=== PATIENT | female | born 1995 | race Caucasian/White ===

== ENCOUNTER → 2021-03-05 12:58 | Outpatient (CLI) | payer OTHER, SELFPAY ==
--- NOTE | ~2021-03-05 | US_ITS ---
EXAMINATION: US OB transvaginal DATE: 03/05/2021 13:36 INDICATION: First trimester viability assessment TECHNIQUE: Real-time pelvic transabdominal and transvaginal ultrasound was performed. COMPARISON: None. FINDINGS: The uterus measures 7.3 x 5.4 x 6.7 cm. There is an intrauterine gestational sac. A yolk s ac is identified. There appears to be a tiny pole, too small to measure. heart rate is no t determined due to small pole size. The mean sac diameter is 1.6 cm , which correlates with an estimated gestational age of 6 weeks and 0 day(s) (+/-) 7 day(s). The right ovary measures 3.6 x 3.2 x 4.6 cm. The left ovary measures 2.9 x 1.9 x 2.6 cm. There is nor mal vascular flow in the ovaries. There is no free fluid in the pelvis. IMPRESSION: 1. Intrauterine with an estimated gestational age of 6 weeks and 0 day(s) (+/-) 7 day(s) an d an estimated delivery date of 10/29/2021 based on mean sac diameter. Reviewed, dictated and finalized at location A. IMPRESSION: 1. Intrauterine with an estimated gestational age of 6 weeks and 0 da y(s) (+/-) 7 day(s) and an estimated delivery date of 10/29/2021 based on mean s ac diameter.
== END ==
PROVIDERS: Visit Provider Nurse Practitioner
DX: Z34.91 Encounter for supervision of normal pregnancy, unspecified, first trimester (principal); Z3A.01 Less than 8 weeks gestation of pregnancy
CPT/HCPCS: 76817

== ENCOUNTER → 2021-03-21 11:18 | Outpatient (CLI) | payer OTHER, SELFPAY ==
--- NOTE | ~2021-03-21 | US_ITS ---
EXAMINATION: US OB transvaginal EXAM DATE: 03/21/2021 11:48 INDICATION: Confirm viability. 1st trimester. TECHNIQUE: Pelvic obstetrical transvaginal sonogram was performed by a technologist. There are mult iple grayscale and Doppler images available for interpretation. Comparison is made to prior examinati on from 03/05/21. FINDINGS: Uterus measures 7.9 x 6.7 x 7.4 cm. There is intrauterine gestation sac. pole with heart rate confirmed at 167 beats per minute. The 1.4 cm crown-rump length corresponds to estimated gestational age by ultrasound of 7 weeks 5 days, estimated date of confinement 11/02/2021. Yolk sac i s identified. There is no sonographic evidence of subchorionic hemorrhage. Ovaries not visualized . IMPRESSION: Early live intrauterine gestation, age by ultrasound 7 weeks 5 days. Reviewed, dictated and finalized at location B. IMPRESSION: Early live intrauterine gestation, age by ultrasound 7 weeks 5 day s.
== END ==
PROVIDERS: Visit Provider Obstetrics & Gynecology Gynecology
DX: O36.80X0 Pregnancy with inconclusive fetal viability, not applicable or unspecified (principal); Z3A.01 Less than 8 weeks gestation of pregnancy
CPT/HCPCS: 76817

== ENCOUNTER → 2021-06-04 10:44 | Outpatient (CLI) | payer OTHER, SELFPAY ==
--- NOTE | ~2021-06-04 | US_ITS ---
US OB /maternal detail DATE: 06/04/2021 11:24 INDICATION: anatomy screen TECHNIQUE: Real-time imaging and Doppler analysis COMPARISON: None FINDINGS: Live arboleda intrauterine gestation, fetus in breech presentation. Posterior placenta, lo wer margin 2.8 cm above the internal os. Subjectively normal amount of amniotic fluid. Cerebral ventricles, cerebellum, cisterna magna and nuchal fold appear normal. cervical spine a ppears normal. Upper lip and nose appear normal. Four-chamber heart with heart rate of 136 bpm. The outflow tracts are not well demonstrat ed. diaphragm is intact. Fluid intensity stomach and urinary bladder. kidneys are ident ified, without hydronephrosis. Three-vessel umbilical cord with normal insertion at abdominal wall. extremities appear u nremarkable. Biparietal diameter 4.28 cm; 19 weeks Head circumference 16.08 cm; 18 weeks 6 days Abdominal circumference 14.22 cm; 19 weeks 4 days Femur length 2.93 cm; 19 weeks Composite age by Hadlock formula is 19 weeks 1 day +/- 1 week 2 days; YANNI: 10/28/2021 weight is 282.7 +/- 42.4 g. Estimated weight-GP: 89.9% Head circumference/abdominal circumference 1.13, within normal range of 1.09 up to 1.26 Femur length/head circumference 18.21, within normal range of 16.20-18.51 IMPRESSION: Breech presentation Unremarkable anatomy screen Estimated age of 19 weeks 1 day +/- 1 week 2 days; YANNI: 10/28/2021 Reviewed, dictated and finalized at Location A. Reviewed, dictated and finalized at location A.
== END ==
PROVIDERS: Visit Provider Obstetrics & Gynecology Gynecology
DX: O32.1XX0 Maternal care for breech presentation, not applicable or unspecified (principal); Z3A.19 19 weeks gestation of pregnancy
CPT/HCPCS: 76805

== ENCOUNTER → 2021-06-25 14:50 | Outpatient (CLI) | payer OTHER, SELFPAY ==
--- NOTE | ~2021-06-25 | US_ITS ---
EXAMINATION: US OB follow up DATE: 06/25/2021 15:26 INDICATION: Evaluate viability. TECHNIQUE: Real-time transabdominal obstetric ultrasound. FINDINGS: Comparison to multiple prior studies sequentially, with oldest reviewed study dated 021. There is a single living fetus in vertex presentation. The placenta is posterior without placenta pr evia. cardiac activity and movement is noted with a heart rate of 142 beats per minute. T he amniotic fluid volume subjectively normal. Limited survey demonstrates normal ventricular outflow tracts. The following biometric data were obtained: BPD: 52mm corresponds to gestational age 21 weeks 5 days. Head circumference: 199mm corresponds to gestational age 22 weeks 0 days. Abdominal circumference: 169mm corresponds to gestational age 21 weeks 6 days. Femur length: 40mm corresponds to gestational age 22 weeks 6 days. Estimated weight: 489grams +/- 73grams, 85th percentile.] IMPRESSION: 1. Single living intrauterine in vertex presentation with an estimated gestational age of 22 weeks 0 days by inititial ultrasound. Appropriate interval growth. 2. Normal limited survey of the ventricular outflow tracts.. Reviewed, dictated and finalized at location A. IMPRESSION: 1. Single living intrauterine in vertex presentation with an estimat ed gestational age of 22 weeks 0 days by inititial ultrasound. Appropriate int erval growth. 2. Normal limited survey of the ventricular outflow tracts..
== END ==
PROVIDERS: Visit Provider Obstetrics & Gynecology Gynecology
DX: O26.842 Uterine size-date discrepancy, second trimester (principal); Z3A.22 22 weeks gestation of pregnancy
CPT/HCPCS: 76816

== ENCOUNTER 2021-10-27 04:54 | Inpatient (IN) | payer OTHER, SELFPAY ==
[2021-10-27] VITALS (92 sets, daily range): BP systolic 88–152; BP diastolic 44–116; PULSE 61–158; RESP 13–20; TEMP 36.1–36.8; O2SAT 93–100; BMI 28.0
[2021-10-27] MEDS: LACTATED RINGERS 1,000 ML 125 ML IV CONT ×2 (05:25→09:45)
[2021-10-27] MEDS: AMPICILLIN 2 GM/NS 100 ML 2 GM/100 ML BAG IVPB (05:30)
[2021-10-27 05:43] LABS: Basophils Percent Auto 0.3 % (0.2-1.2); Eosinophils Absolute Auto 0.1 K/mm3 (0-0.3); Eosinophils Percent Auto 0.7 % (0-4.4); Hematocrit 35.2 % (37.0-47.0); Hemoglobin 11.9 g/dL (12.0-15.0); Immature Granulocyte Absolute 0.12 K/mm3 (0.00-0.031); Immature Granulocyte Percent A 0.9 % (0-0.5); Lymphocytes Absolute Auto 3.11 K/mm3 (0.9-3.2); Lymphocytes Percent Auto 22.8 % (18.3-44.2); Mean Corpuscular HGB Conc 33.8 g/dl (32-36); Mean Corpuscular Hemoglobin 29.9 pg (26-34); Mean Corpuscular Volume 88.4 fl (80-100); Mean Platelet Volume 9.8 fl (7.4-10.4); Monocytes Absolute Auto 0.7 K/mm3 (0.1-0.6); Neutrophils Absolute Auto 9.6 K/mm3 (1.3-6.7); Neutrophils Percent Auto 70.3 % (45.5-73.1); Platelet Count Result 338 k/mm3 (150-375); Red Blood Count 3.98 M/mm3 (4.2-5.4); Red Cell Distribution Width 12.8 % (11.5-14.5); White Blood Count 13.6 K/mm3 (4.5-10.0)
[2021-10-27] MEDS: OXYTOCIN 30 UNITS/NS 500 ML 30 UNITS/500 ML BAG 6 UNITS IV CONT (05:50)
--- NOTE | 2021-10-27 06:46 | LDADM ---
This patient, Milagros Dodge, was admitted to Labor/Delivery/Recovery 103 on 10/27/21 at 04:54. Plans for labor, pain management and were discussed with patient. Patient/family oriented to hospital policies and general routines including ID bracelet, bed and alarms, visiting hours, pain management, procedures, bathroom and other care routines, personal items, smoking policy, room service/diet and guest tray routines, security routines, and visiting hours. Patient/Family are encouraged to report perceived risks to care and to ask questions if they do not understand what they are told or what they should do. See OBIX for further documentation.
--- NOTE | 2021-10-27 08:09 | WPDOBADMIT ---
Obstetrics - Admit Note Admission Note: record reviewed. No pertinent additions to the history and/or any subsequent changes in the physical findings that are not consistent with the expected course of the were found. Additions to the history and/or subsequent changes in the physical findings follow. Here for MIL. Cervix 250/-2 AROM with clear fluid. FHTs reactive
[2021-10-27] MEDS: AMPICILLIN 1 GM/NS 50 ML 1 GM/50 ML BAG IVPB (09:44)
--- NOTE | 2021-10-27 09:59 | WPDANESEPP ---
Anes - Eval Pre Procedure Date/Time: 10/27/21 09:59 Pre Op Diagnosis: IOL Patient Data Age: 26 Gender: F Height: 1.75 m Weight: 86 kg Last Vital Signs Temp 36.6 C 10/27/21 08:00 Pulse 85 10/27/21 09:31 BP 131/77 10/27/21 09:31 Allergies Allergy/AdvReac Type Severity Reaction Status Date / Time No Known Allergies Allergy Verified 10/27/21 05:50 Home Medications Medication Instructions Recorded Confirmed Type ergocalciferol (vitamin D2) 1,250 mcg PO WEEKLY 10/21/21 10/21/21 History [Vitamin D2] prenat.vits,katty,jml-bffb-gqott 1 tablet PO DAILY 10/21/21 10/21/21 History [ #2] Laboratory Tests 10/27/21 10/27/21 10/27/21 05:23 05:23 05:23 WBC 13.6 K/mm3 H K/mm3 (4.5-10.0) RBC 3.98 M/mm3 L M/mm3 (4.2-5.4) Hgb 11.9 g/dL L g/dL (12.0-15.0) Hct 35.2 % L % (37.0-47.0) MCV 88.4 fl fl (80-100) MCH 29.9 pg pg (26-34) MCHC 33.8 g/dl g/dl (32-36) RDW 12.8 % % (11.5-14.5) Plt Count 338 k/mm3 k/mm3 (150-375) MPV 9.8 fl fl (7.4-10.4) Immature Gran % (Auto) 0.9 % H % (0-0.5) Neut % (Auto) 70.3 % % (45.5-73.1) Lymph % (Auto) 22.8 % % (18.3-44.2) [place] % (Auto) 5.0 % % (2.6-8.5) Eos % (Auto) 0.7 % % (0-4.4) Baso % (Auto) 0.3 % % (0.2-1.2) Lymph # (Auto) 3.11 K/mm3 K/mm3 (0.9-3.2) [place] # (Auto) 0.7 K/mm3 H K/mm3 (0.1-0.6) Eos # (Auto) 0.1 K/mm3 K/mm3 (0-0.3) Baso # (Auto) 0.0 K/mm3 K/mm3 (0.0-0.1) Abs Immat Gran (auto) 0.12 K/mm3 H K/mm3 (0.00-0.031) Absolute Neuts (auto) 9.6 K/mm3 H K/mm3 (1.3-6.7) Absolute Nucleated RBC 0.0 K/mm3 K/mm3 (0.0-0.012) Nucleated RBC % 0.0 % % (0.0-0.2) RPR Pending Blood Type O Positive Antibody Screen Negative Patient hx anesthesia problems: none Family hx anesthesia problems: none Results Review: All pre-operative results and documents have been reviewed as part of the pre-operative evaluation. [facility] Family History Family History Grandparent Diabetes mellitus Grandparent History of blood clots Grandparent Alzheimer disease Social History Social History Smoking status: Never smoker Second hand tobacco smoke exposure: No Substance use: never Spiritual care concerns: No Exam Day of Procedure 10/27/21 09:59 Patient weight: overweight Heart: regular rate and rhythm Lungs: clear to auscultation Airway: Mallampati scale class II Neurological: alert and oriented
[2021-10-27 11:22] LABS: Rapid Plasma Reagin Non-Reactive (NonReactive)
--- NOTE | 2021-10-27 12:04 | WPDANESEFPP ---
Anes - Eval Final PreProcedure Day of Procedure 10/27/21 12:04 Patient weight: overweight Lungs: clear to auscultation Airway: Mallampati scale class II Neurological: alert and oriented Last oral intake: 2 hours (clears) ASA classification: II Emergent: no Anesthetic plan: proceed Anesthesia type and monitoring: regional epidural and standard monitoring Results Review: All pre-operative results and documents have been reviewed as part of the pre-operative evaluation. Informed Consent: The patient's anesthetic plan and its attendant risks and benefits were discussed with the patient/family/POA. Questions were solicited and answers provided to the satisfaction of the patient/family/POA.
--- NOTE | 2021-10-27 12:20 | WPDHPUPDATE1 ---
History and Physical Update Update Date/Time: 10/27/21 12:20 History and Physical has been reviewed, including an updated exam of the patient. There are NO changes in the patient's condition. Risks, benefits, and alternatives have been discussed and questions answered. Patient agrees to proceed with procedure.
--- NOTE | 2021-10-27 12:20 | PM.IMHP ---
H&P: HPI History of Present Illness Date/Time: 10/27/21 12:20 Chief Complaint: breech Narrative: 26-year-old G1 at 39 weeks here for medical induction of labor. Artificial rupture membranes this morning when she was 2cm revealed clear fluid. Patient was progressed to 5cm and on exam was noted to be breech. Ultrasound confirms. Plan is to proceed with primary . Patient has no questions and agrees to proceed. labs O positive, rubella immune, RPR negative, hepatitis-B surface antigen negative, HIV negative, group B strep positive. [facility] Past Medical History Medical History (Updated 10/27/21 @ 12:23 by Marcie Pacheco MD) Ganglion cyst excised from wrist 2010 Family History Family History Grandparent Diabetes mellitus Grandparent History of blood clots Grandparent Alzheimer disease Social History Social History Smoking status: Never smoker Second hand tobacco smoke exposure: No Substance use: never Spiritual care concerns: No Meds Home Medications and Allergies Home Medications Medication Instructions Recorded Confirmed Type ergocalciferol (vitamin D2) 1,250 mcg PO WEEKLY 10/21/21 10/21/21 History [Vitamin D2] prenat.vits,katty,vkz-cech-yzcuk 1 tablet PO DAILY 10/21/21 10/21/21 History [ #2] Allergies Allergy/AdvReac Type Severity Reaction Status Date / Time No Known Allergies Allergy Verified 10/27/21 05:50 Vital Signs Vital Signs - 24 hr 10/27/21 05:12 10/27/21 05:15 10/27/21 05:31 Temperature Pulse Rate 121 H 117 H 135 H Blood Pressure 136/83 139/77 135/82 Pulse Oximetry 10/27/21 05:45 10/27/21 06:00 10/27/21 06:15 Temperature Pulse Rate 100 89 90 Blood Pressure 136/90 135/84 121/80 Pulse Oximetry 10/27/21 06:30 10/27/21 06:45 10/27/21 07:01 Temperature Pulse Rate 92 95 90 Blood Pressure 125/71 123/79 97/56 L Pulse Oximetry 10/27/21 07:15 10/27/21 07:30 10/27/21 08:00 Temperature 98 F Pulse Rate 90 92 Blood Pressure 111/71 115/69 Pulse Oximetry 10/27/21 08:15 10/27/21 08:31 10/27/21 08:47 Temperature Pulse Rate 88 82 84 Blood Pressure 121/70 120/70 124/69 Pulse Oximetry 10/27/21 09:01 10/27/21 09:15 10/27/21 09:31 Temperature Pulse Rate 81 92 85 Blood Pressure 123/75 126/83 131/77 Pulse Oximetry 10/27/21 10:11 10/27/21 10:16 10/27/21 10:17 Temperature Pulse Rate 86 Blood Pressure 133/78 Pulse Oximetry 100 100 10/27/21 10:19 10/27/21 10:20 10/27/21 10:24 Temperature Pulse Rate 92 79 85 Blood Pressure 93/48 L 119/66 127/55 L Pulse Oximetry 100 10/27/21 10:25 10/27/21 10:26 10/27/21 10:27 Temperature Pulse Rate 88 91 Blood Pressure 125/69 132/67 Pulse Oximetry 100 10/27/21 10:29 10/27/21 10:30 10/27/21 10:31 Temperature 98.2 F Pulse Rate 92 89 Blood Pressure 136/62 132/59 L Pulse Oximetry 100 10/27/21 10:32 10/27/21 10:35 10/27/21 10:36 Temperature Pulse Rate 97 93 87 Blood Pressure 133/67 128/68 133/72 Pulse Oximetry 100 10/27/21 10:39 10/27/21 10:40 10/27/21 10:41 Temperature Pulse Rate 92 81 Blood Pressure 133/71 123/68 Pulse Oximetry 100 10/27/21 10:45 10/27/21 10:50 10/27/21 10:51 Temperature Pulse Rate 79 Blood Pressure 130/64 Pulse Oximetry 100 100 10/27/21 10:55 10/27/21 11:00 10/27/21 11:01 Temperature Pulse Rate 91 Blood Pressure 124/67 Pulse Oximetry 100 100 10/27/21 11:05 10/27/21 11:10 10/27/21 11:15 Temperature Pulse Rate 88 Blood Pressure 121/74 Pulse Oximetry 100 100 100 10/27/21 11:20 10/27/21 11:25 10/27/21 11:30 Temperature Pulse Rate Blood Pressure Pulse Oximetry 100 100 100 10/27/21 11:31 10/27/21 11:45 10/27/21 12:00 Temperature Pulse Rate 84 84 102 H Blood Pressure 110/59 L 12
--- NOTE | 2021-10-27 12:55 | P.OP_ITS ---
Procedure Note - Detailed Date of Procedure 10/27/21 Pre-op Diagnosis 39 weeks gestation Medical induction of labor Breech presentation Post-op Diagnosis same Procedure Performed Primary low transverse section Surgeon Marcie Pacheco MD Anesthesia epidural Findings Female in the conrado breech presentation stick 8lb 6oz with Apgars of 9 and 9. Normal-appearing tubes ovaries and uterus. Description of Procedure The patient was taken to the operating room after ultrasound confirmed breech presentation. The patient was prepped and draped in the usual sterile fashion and the epidural anesthesia was dosed for . Once anesthesia was deemed adequate a Pfannenstiel skin incision was made with a scalpel and carried down to the underlying layer of fascia which was nicked in the midline. The fascial incision was extended laterally using Gilmore scissors. Ochsner was used to tent the fascia which was then dissected off using sharp and blunt dissection. The rectus muscles were in the midline. The peritoneum was tented and entered with Metzenbaum. The incision is extended with blunt traction. The bladder blade is placed and the vesicouterine peritoneum grasped with a Peon. The bladder flap was created using Metzenbaum was and blunt dissection. The bladder blade is replaced. The lower uterine segment was incised in a transverse fashion with the scalpel and extended laterally using blunt traction. The 's breech was brought through the incision and the infant fully delivered while the commercial lines account assistant applied fundal pressure. The cord was clamped and cut the infant handed to the awaiting OB nurse. Placenta was removed using manual traction. Cord blood and cord gases were taken 1st. The uterus is exteriorized cleared of all clots and debris. The uterine incision was closed using 0 Monocryl in a running locked fashion with the same suture to imbricate. Good hemostasis is noted. The cul-de-sac is irrigated and the uterus returned to the abdomen the gutters were irrigated and the incision again inspected and noted to be hemostatic. The fascial incision was closed using 0 Vicryl in a running fashion. Subcutaneous tissues were irrigated noted to be hemostatic. Skin is closed using 4-0 Vicryl in a subcuticular fashion. Dermaflex was placed over the incision. Estimated Blood Loss 495 Drains Yes (Begum catheter) Packing No Pathology none sent Complications No immediate complications Condition stable Disposition floor
--- NOTE | 2021-10-27 12:59 | PM.OBDSVD ---
DS: Admitting Diagnosis Discharge Date 10/29/21 Admitting Diagnosis Intrauterine 39 weeks for medical induction of labor Breech presentation DS: Discharge Diagnosis Discharge Diagnosis (1) delivery delivered: Code(s): O82 - Encounter for delivery without indication Status: Acute OB - DS: Summary OB Procedures : Ultrasound OB Procedures Intrapartum: low cervical, transverse OB Procedures: : None Peripartum Data Delivery Method: Section Procedures: Procedures Operation Date: 10/27/21 12:30 <No data on this case meets the specified criteria> complications: none Status at Discharge Functional status at discharge: independent ambulation Overall status at discharge: patient is progressing back to baseline Time Spent with Patient Time attestation: Total time spent providing and/or coordinating discharge services: DS: Data Data Completed and Pending Labs on day of discharge: Labs from last 24 hours 10/27/21 10/27/21 10/27/21 05:23 05:23 05:23 WBC 13.6 H RBC 3.98 L Hgb 11.9 L Hct 35.2 L MCV 88.4 MCH 29.9 MCHC 33.8 RDW 12.8 Plt Count 338 MPV 9.8 Immature Gran % (Auto) 0.9 H Neut % (Auto) 70.3 Lymph % (Auto) 22.8 [place] % (Auto) 5.0 Eos % (Auto) 0.7 Baso % (Auto) 0.3 Lymph # (Auto) 3.11 [place] # (Auto) 0.7 H Eos # (Auto) 0.1 Baso # (Auto) 0.0 Abs Immat Gran (auto) 0.12 H Absolute Neuts (auto) 9.6 H Absolute Nucleated RBC 0.0 Nucleated RBC % 0.0 RPR Non-reactive Blood Type O Positive Antibody Screen Negative Discharge Plan Discharge Attending physician on discharge: Marcie Pacheco Discharging Clinician: Marcie Pacheco Anticipated Discharge Date/Time: 10/30/21 13:00 Patient Disposition: Home, Self-Care Activity: may shower, may drive after 2 weeks and pelvic rest Diet: regular Wound Care Instructions: incision open to air Patient Instructions: Antibiotic Form Stand Alone Forms: General Discharge Information Follow-up/Referrals: Marcie Pacheco MD [Physician] - 1 Week (and 6) Discharge Medications: New hydrocodone-acetaminophen 5-325 mg Tablet 1 tablet PO Q3H PRN (Reason: Moderate Pain (4-6)) Qty: 30 RF: 0 norethindrone (contraceptive) 0.35 mg tablet 0.35 mg PO DAILY Qty: 84 RF: 3 Continued ergocalciferol (vitamin D2) [Vitamin D2] 1,250 mcg (50,000 unit) Capsule 1,250 mcg PO WEEKLY RF: 0 #2 Tablet 1 tablet PO DAILY RF: 0 Date of admission: 10/27/21 04:54 Primary Care Provider: PHYSICIAN,COOK VEGETABLE Admitting Provider: Marcie Pacheco Attending physician on admission: Marcie Pacheco Condition: Stable
[2021-10-27] MEDS: fentaNYL CITRATE INJ (*CRX) 100 MCG/2 ML VIAL 50 MCG IV PUSH ×2 (15:01→15:15)
[2021-10-27] MEDS: KETOROLAC 30 MG/ML VIAL (*BKC) IV PUSH ×2 (16:34→23:44)
--- NOTE | 2021-10-27 17:33 | OBPPTRN ---
1534 Patient transferred to post room #284 via stretcher. Support person present. Oriented to unit, room, information board, rooming in, admission packet and security measures. Patient verbalizes understanding.
[2021-10-27] MEDS: DEXTROSE 5%/0.45% SOD CHL 1,000 ML 125 ML IV CONT (18:47)
[2021-10-28 05:00] VITALS: BP 115/75; PULSE 80; RESP 18; TEMP 36.8
[2021-10-28 05:48] LABS: Basophils Absolute Auto 0.1 K/mm3 (0.0-0.1); Basophils Percent Auto 0.3 % (0.2-1.2); Eosinophils Absolute Auto 0.1 K/mm3 (0-0.3); Eosinophils Percent Auto 0.6 % (0-4.4); Hematocrit 29.5 % (37.0-47.0); Hemoglobin 9.5 g/dL (12.0-15.0); Immature Granulocyte Percent A 0.6 % (0-0.5); Lymphocytes Absolute Auto 2.29 K/mm3 (0.9-3.2); Lymphocytes Percent Auto 14.6 % (18.3-44.2); Mean Corpuscular HGB Conc 32.2 g/dl (32-36); Mean Corpuscular Hemoglobin 29.8 pg (26-34); Mean Corpuscular Volume 92.5 fl (80-100); Mean Platelet Volume 9.7 fl (7.4-10.4); Monocytes Absolute Auto 0.7 K/mm3 (0.1-0.6); Monocytes Percent Auto 4.3 % (2.6-8.5); Neutrophils Absolute Auto 12.5 K/mm3 (1.3-6.7); Neutrophils Percent Auto 79.6 % (45.5-73.1); Platelet Count Result 232 k/mm3 (150-375); Red Blood Count 3.19 M/mm3 (4.2-5.4); White Blood Count 15.7 K/mm3 (4.5-10.0)
--- NOTE | 2021-10-28 07:27 | PM.OBPNVD ---
OB - PN: Subj Subjective Date/time seen: 10/28/21 07:27 Patient comments: no complaints and pain well controlled baby status: doing well OB - PN: Obj Data Labs CBC & Chem 7: 10/28/21 04:41 Labs: Laboratory Results - last 24 hr 10/27/21 10/27/21 10/28/21 05:23 05:23 04:41 WBC 15.7 H RBC 3.19 L Hgb 9.5 L Hct 29.5 L MCV 92.5 MCH 29.8 MCHC 32.2 RDW 13.0 Plt Count 232 MPV 9.7 Immature Gran % (Auto) 0.6 H Neut % (Auto) 79.6 H Lymph % (Auto) 14.6 L [place] % (Auto) 4.3 Eos % (Auto) 0.6 Baso % (Auto) 0.3 Lymph # (Auto) 2.29 [place] # (Auto) 0.7 H Eos # (Auto) 0.1 Baso # (Auto) 0.1 Abs Immat Gran (auto) 0.10 H Absolute Neuts (auto) 12.5 H Absolute Nucleated RBC 0.0 Nucleated RBC % 0.0 RPR Non-reactive Blood Type O Positive Antibody Screen Negative OB - PN A/P Plan day: 1 Plan: routine care Time Spent With Patient Time: Total time spent is greater than 50% in coordination of care (as documented) at patient's floor/unit and/or counseling patient: Exam Narrative: inc c/d/i : Bimanual exam- vagina & uterus: other (Uterus firm, nt @U)
--- NOTE | 2021-10-28 07:32 | WPDANLDPN2 ---
Anes-Prog Note L&D Date/Time: 10/28/21 07:32 Comfortable throughout: section Neuraxial method: spinal Epidural/Spinal procedure site: clean & non-tender Neuro status: Neuro function grossly intact. Cardiovascular status: normal Respiratory status: normal Airway patency: baseline Mental status: baseline Post-Op hydration status: normal Vital Signs: Last Vital Signs Temp 98.2 F 10/28/21 05:00 Pulse 80 10/28/21 05:00 Resp 18 10/28/21 05:00 BP 115/75 10/28/21 05:00 Pulse Ox 100 10/27/21 17:35 Pain score (VAS): 0-1 I/O: Intake & Output 10/27/21 10/27/21 10/28/21 15:59 23:59 07:59 Intake Total 2300 Output Total 225 3400 Balance -225 -1100 Post-procedural complaints: none Patient feedback: Patient satisfied with anesthetic care.
--- NOTE | 2021-10-28 07:33 | WPDANESPN ---
Anes - Prog Note Post-Op Date/Time: 10/28/21 07:33 Cardiovascular status: normal Respiratory status: normal Airway patency: baseline Mental status: baseline Post-Op hydration status: normal Vital Signs: Last Vital Signs Temp 98.2 F 10/28/21 05:00 Pulse 80 10/28/21 05:00 Resp 18 10/28/21 05:00 BP 115/75 10/28/21 05:00 Pulse Ox 100 10/27/21 17:35 Pain Score (VAS): 0-1 I/O: Intake & Output 10/27/21 10/27/21 10/28/21 15:59 23:59 07:59 Intake Total 2300 Output Total 225 3400 Balance -225 -1100 Laboratory Tests 10/28/21 04:41 10/27/21 10/27/21 10/28/21 05:23 05:23 04:41 WBC 15.7 H RBC 3.19 L Hgb 9.5 L Hct 29.5 L MCV 92.5 MCH 29.8 MCHC 32.2 RDW 13.0 Plt Count 232 MPV 9.7 Immature Gran % (Auto) 0.6 H Neut % (Auto) 79.6 H Lymph % (Auto) 14.6 L [place] % (Auto) 4.3 Eos % (Auto) 0.6 Baso % (Auto) 0.3 Lymph # (Auto) 2.29 [place] # (Auto) 0.7 H Eos # (Auto) 0.1 Baso # (Auto) 0.1 Abs Immat Gran (auto) 0.10 H Absolute Neuts (auto) 12.5 H Absolute Nucleated RBC 0.0 Nucleated RBC % 0.0 RPR Non-reactive Blood Type O Positive Antibody Screen Negative Post-procedural complaints: none Patient Feedback: Patient satisfied with anesthetic care.
[2021-10-28 08:05] VITALS: BP 110/69; PULSE 104; RESP 16; TEMP 36.8; O2SAT 99
[2021-10-28] MEDS: POLYSACCHARIDE IRON COMPLEX 150 MG CAPSULE PO ×2 (08:37→15:46)
[2021-10-28] MEDS: DOCUSATE SODIUM 100 MG CAPSULE PO ×2 (08:37→15:47)
[2021-10-28] MEDS: MULTIVIT/MIN/PREN/FOL AC/IRON TABLET 1 TAB PO (08:37)
[2021-10-28] MEDS: IBUPROFEN 600 MG TABLET PO ×3 (08:38→23:51)
[2021-10-28 12:08] VITALS: BP 106/65; PULSE 77; RESP 16; TEMP 36.3; O2SAT 100
--- NOTE | 2021-10-28 13:22 | PC.NURSE ---
0517 - Consulted with patient, reviewed infant feeding cues, frequencies, duration of feedings, feeding elimination flow sheet, and signs of adequate intake. Demonstrated stimulation techniques to wake infant for feeding. Assisted with infant to breast. Reviewed positioning/alignment, holding breast and asymmetrical latch on. was able to latch correctly. Infant nursed eagerly, with steady draws and frequent swallowing noted. Reviewed signs of a correct latch, effective nursing and suck swallow ratio. Infant was able to maintain latch without discomfort to mother. Nipple care reviewed. Instructed mother to call out for RN assistance if she is unable to latch for feeding or she has discomfort with nursing. Instructed feeding should be initiated three hours from start of last feeding or if feeding cues are noted before. Mother voiced understanding of information shared.
--- NOTE | 2021-10-28 15:11 | PC.NURSE ---
1015 - Consulted with patient, reviewed infant feeding cues, frequencies, duration of feedings, feeding elimination flow sheet, and signs of adequate intake. Demonstrated stimulation techniques to wake infant for feeding. Assisted with infant to breast. Reviewed positioning/alignment, holding breast and asymmetrical latch on. was able to latch correctly. Infant nursed eagerly, with steady draws and frequent swallowing noted. Reviewed signs of a correct latch, effective nursing and suck swallow ratio. Infant was able to maintain latch without discomfort to mother in adjusted football positioning. Nipple care reviewed. Instructed mother to call out for RN assistance if she is unable to latch for feeding or she has discomfort with nursing. Instructed feeding should be initiated three hours from start of last feeding or if feeding cues are noted before. Mother voiced understanding of information shared.
[2021-10-28 18:53] VITALS: BP 107/64; PULSE 80; RESP 18; TEMP 36.6
--- NOTE | 2021-10-29 07:20 | PM.OBPNVD ---
OB - PN: Subj Subjective Date/time seen: 10/29/21 07:20 Patient comments: no complaints and pain well controlled baby status: doing well OB - PN: Obj Data Labs CBC & Chem 7: 10/28/21 04:41 OB - PN A/P Plan day: 2 Plan: routine care, discharge home and other (Plans micronor for bc) Time Spent With Patient Time: Total time spent is greater than 50% in coordination of care (as documented) at patient's floor/unit and/or counseling patient: Exam Narrative: inc c/d/i : Bimanual exam- vagina & uterus: other (Uterus firm, nt @U)
[2021-10-29 08:00] VITALS: BP 116/76; PULSE 107; RESP 18; TEMP 37.1; O2SAT 100
[2021-10-29] MEDS: SIMETHICONE 80 MG TAB.CHEW PO (08:15)
[2021-10-29] MEDS: IBUPROFEN 600 MG TABLET PO ×2 (08:15→13:59)
[2021-10-29] MEDS: DOCUSATE SODIUM 100 MG CAPSULE PO (08:15)
[2021-10-29] MEDS: POLYSACCHARIDE IRON COMPLEX 150 MG CAPSULE PO (08:15)
[2021-10-29] MEDS: MULTIVIT/MIN/PREN/FOL AC/IRON TABLET 1 TAB PO (08:16)
--- NOTE | 2021-10-29 09:00 | PC.NURSE ---
Patient viewed the discharge video Mother & Baby Care, The First Two Weeks . Patient was given the opportunity and encouraged to ask questions. Patient verbalized understanding of information shared and has been given the mother/baby guide for home reference.
--- NOTE | 2021-10-29 09:37 | PC.NURSE ---
Self care and infant care discharge instructions given including follow up visit date and time. Mom verbalized understanding. No questions or concerns voiced. Very pleasant and cooperative. at side.
--- NOTE | 2021-10-29 14:12 | PC.NURSE ---
0905 - Mother verbalizes she is able to independently latch with appropriate positioning/alignment. She denies any nipple discomfort, is feeding as required and waking infant to feed if needed. has had 8-12 effective feedings in the past 24 hours, and is currently meeting outcomes for weight, output, jaundice and feeding frequencies. Mother states she feels confident to continue effective at home and plans to pump and supplement as she feels the baby requires. Reviewed transition to breast milk, signs of adequate intake, and engorgement/relief. 0955 - Breast pump provided due to mom's requests. Instructions given on breast pump care and usage, pumping schedule (every 3 hours), nipple care, and collection and storage of breast milk. Encouraged [id number], breast massage and manual expression to stimulate supply. Pumping will be logged on the feeding sheet and reviewed. Assessed patient for correct flange size, placement and draw. Patient verbalizes and demonstrates understanding of instructions. Instructed to call ICP if intake/output less than required. Reviewed community resources on the [facility] website and in the Mom/Baby guide. Information on outpatient services provided. Mother has no further questions at this time.
[2021-10-31 11:11] VITALS: BP 121/75; PULSE 101; RESP 20; TEMP 37; O2SAT 100
== END 2021-10-29 15:01 | disposition home or self-care (01) | DRG 788 ==
LOC: ANHLDR 13:01 → ANHOB2 15:41
PROVIDERS: Admitting Provider Obstetrics & Gynecology Gynecology; Visit Provider Obstetrics & Gynecology Gynecology
PROC: 10D00Z1 Extraction of Products of Conception, Low, Open Approach (ICD-10-PCS; CPT 59514; principal; 2021-10-27 12:30)
DX: O32.1XX0 Maternal care for breech presentation, not applicable or unspecified (principal); O99.824 Streptococcus B carrier state complicating childbirth; Z3A.39 39 weeks gestation of pregnancy; Z37.0 Single live birth
CPT/HCPCS: 36415; 85025; 86592; 86850; 86900; 86901; A9270; J0131; J0290; J1885; J2274; J2405; J2590; J2795; J3010; J7120

== ENCOUNTER 2024-02-19 09:49 | Outpatient (CLI) | payer OTHER, SELFPAY ==
[2024-02-19 10:44] LABS: Beta HCG Quantitative < 2.39 mIU/ML
[2024-02-19 11:48] LABS: Chlamydia trachomatis NOT DETECTED (NOT DETECTE); Neisseria gonorrhoeae PCR NOT DETECTED (NOT DETECTE)
== END 2024-02-19 09:50 | disposition home or self-care (01) ==
LOC: ANHLAB 09:51
PROVIDERS: Visit Provider Obstetrics & Gynecology
DX: Z20.2 Contact with and (suspected) exposure to infections with a predominantly sexual mode of transmission (principal); N97.9 Female infertility, unspecified
CPT/HCPCS: 36415; 84702; 87491; 87591

== ENCOUNTER 2024-02-21 11:20 | Outpatient (CLI) | payer OTHER, SELFPAY ==
--- NOTE | ~2024-02-21 | XR_ITS ---
EXAMINATION: XR hysterosalpingogram DATE: 02/21/2024 12:25 INDICATION: Female infertility TECHNIQUE: Multiple fluoroscopic images were obtained during contrast infusion into the endometrial c anal of the uterus by the primary physician. Fluoroscopy exposure time was 1.4 minutes. A total of 4 fluoroscopic images were recorded. Total DAP was 7.784 Gycm^2 FINDINGS: The uterine cavity demonstrates normal morphology. The fallopian tubes are normal in caliber and pat ent bilaterally. There is normal spillage of contrast into the peritoneum on both sides. IMPRESSION: 1. Normal hysterosalpingogram. Reviewed, dictated and finalized at location A.
== END 2024-02-21 11:21 | disposition home or self-care (01) ==
PROVIDERS: PCP Internal Medicine; Visit Provider Obstetrics & Gynecology
DX: N97.9 Female infertility, unspecified (principal)
CPT/HCPCS: 58340; 74740; Q9966

== ENCOUNTER 2024-06-25 13:24 | Emergency (ER) | payer OTHER, SELFPAY ==
--- NOTE | ~2024-06-25 | US_ITS ---
US OB transvaginal DATE: 06/25/2024 14:37 INDICATION: Vaginal bleeding, 6 week gestation TECHNIQUE: Real time imaging via transabdominal approach COMPARISON: 02/09/2024 transvaginal ultrasound FINDINGS: The uterus measures 7.5 cm sagittal, 4.1 cm AP and 5.1 cm transverse dimension. The central endometrial echo measures 9.6 mm. No intrauterine gestational sac is detected. Right ovary: 2.7 x 2.1 x 1.8 cm Left ovary: 2.1 x 1.6 x 1.5 cm. 1.5 cm left ovarian cystic lesion, most likely a corpus luteum cyst. Ectopic gestation is less likel y consideration in the differential diagnosis. Trace free fluid in the posterior cul de sac. IMPRESSION: No intrauterine gestational sac 1.5 cm left ovarian cystic lesion, most likely a corpus luteum cyst. Ectopic gestation is less likel y consideration in the differential diagnosis; clinical correlation with serum beta HCG levels and po ssible follow up ultrasound may be of benefit. Reviewed, dictated and finalized at Location A. Reviewed, dictated and finalized at location A. IMPRESSION: No intrauterine gestational sac 1.5 cm left ovarian cystic lesion, most likely a corpus luteum cyst. Ectopic g estation is less likely consideration in the differential diagnosis; clinical c orrelation with serum beta HCG levels and possible follow up ultrasound may be of benefit.
[2024-06-25 13:50] VITALS: BP 127/79; PULSE 92; RESP 14; TEMP 36.7; O2SAT 100
--- NOTE | 2024-06-25 15:00 | ED.FEMALEGU ---
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 Pain 2/10 in severity, didn't take anything prior to arrival. Bleeding started late morning, approximately 12noon. It started as light pink and then became bright red. Noticed only with wiping, not having to use panty liners or pads. ObGYn Anabela Cha though hasn't yet established with them for this ; has an upcoming appointment for 8 week gestational age appointment. No fevers. Had taken several positive digital tests at home. Related Data Home Medications Medication Instructions Recorded Confirmed prenat.vits,katty,fso-oqba-cksgy 1 tablet PO DAILY 10/21/21 03/16/24 Allergies Allergy/AdvReac Type Severity Reaction Status Date / Time No Known Allergies Allergy Verified 03/16/24 08:09 [facility] Past Medical History Medical History delivery delivered Ganglion cyst excised from wrist 2010 PCOS (polycystic ovarian syndrome) Family History Family History Grandparent Diabetes mellitus Grandparent History of blood clots Grandparent Alzheimer disease Social History Social History Smoking status: Never smoker Second hand tobacco smoke exposure: No Alcohol intake: current Alcohol use details: soically Substance use: never Substance use type: does not use Do You Feel Safe in your Home?: Yes Lack of Transportation: No Lack of Food: Never True Current Housing: I Have Housing Concerned About Future Housing: No Difficulty Paying Gas/Electric Bills: No Difficulty Paying for Meds: No Currently Unemployed: No Education: Master's Degree or Higher Difficulty w/ Childcare or Family Care: No Living arrangements: with family Additional living arrangements comments: Occupation/Education: unemployed 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 HEAD: Normocephalic, atraumatic. EYES: Non injected, non icteric ENT: Nares clear, no rhinorrhea or epistaxis. NECK: Supple. CHEST: Speaking in full sentences. No respiratory distress. HEART: Regular rate and rhythm. . ABDOMEN: Soft, nondistended. No tenderness to palpation. no rigidity/guarding. not peritoneal EXTREMITIES: Normal range of motion. No lower extremity edema. SKIN: Warm, dry, no rash. NEURO: No focal deficits. Alert and oriented x3. PSYCH: Normal mood and affect. Course Vital Signs Vital signs: Vital Signs Temperature 98.0 F 06/25/24 13:50 Pulse Rate 92 06/25/24 13:50 Respiratory Rate 14 06/25/24 13:50 Blood Pressure 127/79 06/25/24 13:50 Pulse Oximetry 100 06/25/24 13:50 Oxygen Delivery Room Air 06/25/24 13:50 Temperature 98.2 F 06/25/24 16:47 Pulse Rate 86 06/25/24 16:47 Respiratory Rate 16 06/25/24 16:47 Blood Pressure 100/62 06/25/24 16:47 Pulse Oximetry 100 06/25/24 16:47 Oxygen Delivery Room Air 06/25/24 13:50 MDM - Female Genitourinary MDM Narrative Medical decision making narrative: This patient is a 28 yo G 2 P 1 female at 6w2d by stated LMP 05/12/24 who comes to the emergency department with vaginal bleeding. In the emergency department she is afebrile and hemodynamically stable with vital signs within normal limits. Rh status and s
[2024-06-25] MEDS: ACETAMINOPHEN 500 MG TABLET 1000 MG PO (15:08)
[2024-06-25 15:11] VITALS: BP 122/74; PULSE 95; RESP 16; O2SAT 100
[2024-06-25 15:17] LABS: Basophils Percent Auto 0.3 % (0.2-1.2); Eosinophils Absolute Auto 0.1 K/mm3 (0-0.3); Eosinophils Percent Auto 0.9 % (0-4.4); Hematocrit 42.6 % (37.0-47.0); Hemoglobin 14.4 g/dL (12.0-15.0); Immature Granulocyte Absolute 0.02 K/mm3 (0.00-0.031); Immature Granulocyte Percent A 0.2 % (0-0.5); Lymphocytes Absolute Auto 1.33 K/mm3 (0.9-3.2); Lymphocytes Percent Auto 14.9 % (18.3-44.2); Mean Corpuscular HGB Conc 33.8 g/dl (32-36); Mean Corpuscular Hemoglobin 30.7 pg (26-34); Mean Corpuscular Volume 90.8 fl (80-100); Mean Platelet Volume 9.1 fl (7.4-10.4); Monocytes Absolute Auto 0.5 K/mm3 (0.1-0.6); Monocytes Percent Auto 5.1 % (2.6-8.5); Neutrophils Percent Auto 78.6 % (45.5-73.1); Platelet Count Result 234 k/mm3 (150-375); Red Blood Count 4.69 M/mm3 (4.2-5.4); Red Cell Distribution Width 11.7 % (11.5-14.5)
[2024-06-25 15:27] LABS: Prothrombin Time 13.5 Seconds (11.1-14.7)
[2024-06-25 15:28] LABS: Partial Thromboplastin Time 28.7 Seconds (22.3-36.8)
[2024-06-25 15:46] LABS: Alanine Aminotransferase 17 U/L (6-35); Albumin Level 4.8 g/dL (3.5-5.1); Alkaline Phosphatase 61 U/L (38-126); Anion Gap 12 mmol/L (4-12); Aspartate Amino Transferase 23 U/L (14-36); Bilirubin,Total 0.5 mg/dL (0.2-1.3); Blood Urea Nitrogen 9 mg/dL (7-17); Calcium 9.5 mg/dL (8.4-10.2); Carbon Dioxide 26 mmol/L (22-30); Chloride 101 mmol/L (98-107); Estimated CRCL calculation 107 ml/min; Estimated Glomerular Filt Rate > 60; Glucose 114 mg/dL (65-110); Potassium 3.9 mmol/L (3.4-5.0); Sodium 139 mmol/L (137-145)
[2024-06-25 15:56] LABS: Add Urine Microscopic? YES; Appearance Urine Clear (Clear); Bacteria Urine None Seen /hpf; Bilirubin Urine Negative (Negative); Blood Urine 3+ (Negative); Color Urine Yellow (Yellow); Glucose Urine UA Negative (Negative); Ketones Urine Negative (Negative); Leukocyte Esterase Ur 1+ LEU/UL (Negative); Nitrate Urine Negative (Negative); Non Pathogenic Casts 0-2; Protein Urine Negative (Negative); RBC Urine 0-2 /hpf (0-2); Specific Grav Ur 1.006 (1.001-1.035); Squamous Epithelial Cell Urine None Seen /hpf (Few); Urobilinogen Urine 0.2 mg/dL (<2.0); pH Urine 6.5 (5.0-9.0)
[2024-06-25 16:03] LABS: Beta HCG Quantitative 247.16 mIU/ML
[2024-06-25 16:47] VITALS: BP 100/62; PULSE 86; RESP 16; TEMP 36.8; O2SAT 100
== END 2024-06-25 16:47 | disposition home or self-care (01) ==
PROVIDERS: Physician Assistant; Emergency Provider Student in an Organized Health Care Education/Training Program; PCP Internal Medicine
DX: O46.91 Antepartum hemorrhage, unspecified, first trimester (principal); Z3A.01 Less than 8 weeks gestation of pregnancy; O34.81 Maternal care for other abnormalities of pelvic organs, first trimester; N83.202 Unspecified ovarian cyst, left side; R10.30 Lower abdominal pain, unspecified
CPT/HCPCS: 36415; 76817; 80053; 81001; 84702; 85025; 85461; 85610; 85730; 86850; 86900; 86901; 87086; 87088; 99284; A9270

== ENCOUNTER 2024-06-27 11:09 | Outpatient (CLI) | payer OTHER, SELFPAY ==
[2024-06-27 11:59] LABS: Beta HCG Quantitative 72.06 mIU/ML
== END 2024-06-27 11:10 | disposition home or self-care (01) ==
PROVIDERS: PCP Internal Medicine; Visit Provider Obstetrics & Gynecology
DX: O20.0 Threatened abortion (principal); Z3A.00 Weeks of gestation of pregnancy not specified
CPT/HCPCS: 36415; 84702

== ENCOUNTER 2024-07-04 13:45 | Outpatient (CLI) | payer OTHER, SELFPAY ==
[2024-07-04 15:00] LABS: Beta HCG Quantitative 2.47 mIU/ML
== END 2024-07-04 13:46 | disposition home or self-care (01) ==
LOC: ANHLAB 13:46
PROVIDERS: PCP Internal Medicine; Visit Provider Obstetrics & Gynecology
DX: O02.1 Missed abortion (principal)
CPT/HCPCS: 36415; 84702

== ENCOUNTER 2024-07-04 19:01 | Emergency (ER) | payer OTHER, SELFPAY ==
--- NOTE | 2024-07-04 19:09 | ED.GENADULT ---
HPI - General Adult General Chief complaint: Wound/Laceration Stated complaint: L THUMB LACERATION Source: patient, RN notes reviewed and old records reviewed Mode of arrival: ambulatory Limitations: no limitations History of Present Illness HPI narrative: 28-year-old female to [facility] for complaint of laceration to left 1st digit. Patient states that prior to arrival she was chopping onions when the knife slipped, causing her to cut through the tip of her finger nail and into her left thumb. Bleeding controlled upon arrival. Patient reports mild discomfort. Denies numbness, tingling, weakness, allergies, pertinent medical history. Patient sitting in exam room in no acute distress. Respirations even and nonlabored. Related Data Home Medications Medication Instructions Recorded Confirmed prenat.vits,katty,vaw-bakf-naoyl 1 tablet PO DAILY 10/21/21 03/16/24 Allergies Allergy/AdvReac Type Severity Reaction Status Date / Time No Known Allergies Allergy Verified 03/16/24 08:09 Review of Systems Review of Systems: All systems reviewed & are unremarkable except as noted in HPI and below Constitutional: Constitutional: Reports no additional constitutional complaints Eyes: Eyes: Reports no additional eye complaints ENT: Reports system reviewed and no additional complaints, except as documented Cardiovascular: Cardiovascular: Reports no additional cardiovascular complaints, Denies chest pain and Denies dyspnea Respiratory: Respiratory: Reports no additional respiratory complaints, Denies cough and Denies dyspnea Musculoskeletal: Musculoskeletal: Reports no additional musculoskeletal complaints Neurologic: Reports system reviewed and no additional complaints, except as documented Psychiatric: Psychiatric: Reports no additional psychiatric complaints [facility] Past Medical History Medical History delivery delivered Ganglion cyst excised from wrist 2010 PCOS (polycystic ovarian syndrome) Family History Family History Grandparent Diabetes mellitus Grandparent History of blood clots Grandparent Alzheimer disease Social History Social History Smoking status: Never smoker Second hand tobacco smoke exposure: No Alcohol intake: current Alcohol use details: soically Substance use: never Substance use type: does not use Do You Feel Safe in your Home?: Yes Lack of Transportation: No Lack of Food: Never True Current Housing: I Have Housing Concerned About Future Housing: No Difficulty Paying Gas/Electric Bills: No Difficulty Paying for Meds: No Currently Unemployed: No Education: Master's Degree or Higher Difficulty w/ Childcare or Family Care: No Living arrangements: with family Additional living arrangements comments: Occupation/Education: unemployed 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 There is no relevant family history pertinent to the patient complaint. Exam Const: General: cooperative, healthy appearing, comfortable, no acute distress, alert and well nourished Nutritional Appearance: well nourished Orientation/consciousness: patient oriented x3 Limitations: no limitations HENMT: Head: normal to inspection Ears: external ears normal Face/Nose/Sinus: Normal external nose present, Normal nares present, normal facial exam, No erythema and No edema Face and sinus: normal facial exam, no erythema and no edema Mouth: Yes Normal oral and palatal mucosa present Eyes: Genera
[2024-07-04 19:51] VITALS: BP 105/71; PULSE 108; RESP 16; TEMP 36.5; O2SAT 100
== END 2024-07-04 19:52 | disposition home or self-care (01) ==
PROVIDERS: Emergency Provider Nurse Practitioner Family; PCP Internal Medicine
DX: S61.012A Laceration without foreign body of left thumb without damage to nail, initial encounter (principal); W26.0XXA Contact with knife, initial encounter
CPT/HCPCS: 12001; 99213; G0463

== ENCOUNTER 2024-10-07 09:24 | Outpatient (CLI) | payer OTHER, SELFPAY ==
--- OUTSIDE RECORDS SUMMARY | 2024-10-14 11:31 | XMS_ITS | Encounter Summary ---
Author Organization [facility] Address [address] [place] [address]. [place] [address] [place] [address] Care Team Providers Care Discharge Door Operator Name Role Phone Ceasar Maynard MD Primary Care Provider [phone] Encounter Details Date Type Department Care Team (Latest Contact Info) Description 07/03/2024 Travel Social History Tobacco Use Types Packs/Day Years Used Date Smoking Tobacco: Never Smokeless Tobacco: Never Alcohol Use Standard Drinks/Week Comments Yes 1.7 (1 standard drin k = 0.6 oz pure alcohol) 1-2 glasses of wine 3-4 times a week PHQ-2 Answer Date Recorded Patient Health Questionnaire-2 Score 3 07/03/2024 Comments No Sex and Gender Information Value Date Recorded Sex Assigned at Not on file Legal Sex Female 11:18 AM CDT Gender Identity Not on file Sexual Orientation Not on file documented as of this encounter Plan of Treatment Not on file documented as of this encounter Visit Diagnoses Not on filedocumented in this encounter Additional Health Concerns Assessment Noted Time PHQ-9 Depression Total Score: 13 024 8:09 AM CDT documented as of this encounter Care Teams Discharge Door Operator Relationship Specialty Start Date End Date Ceasar Maynard MD [address] [place] [id number] PCP - General INTERNAL MEDICINE 07/02/22 documented as of this encounter
--- OUTSIDE RECORDS SUMMARY | 2024-10-14 11:31 | XMS_ITS | Encounter Summary ---
Author Organization [facility] Address [address] [place] [address]. [place] [address] [place] [address] Care Team Providers Care Manufacturing Job Titles Name Role Phone Ceasar Maynard MD Primary Care Provider [phone] Encounter Details Date Type Department Care Team (Latest Contact Info) Description 07/02/2022 Travel Social History Tobacco Use Types Packs/Day Years Used Date Smoking Tobacco: Never Smokeless Tobacco: Never Alcohol Use Standard Drinks/Week Comments Yes 13.3 (1 standard dri nk = 0.6 oz pure alcohol) 1-2 glasses of wine 3-4 times a week PHQ-2 Answer Date Recorded PHQ-2 Score - If the patient scores above 3, please move on to questions 3-9 0 07/02/2022 Comments No Sex and Gender Information Value Date Recorded Sex Assigned at Not on file Legal Sex Female 11:18 AM CDT Gender Identity Not on file Sexual Orientation Not on file COVID-19 Exposure Response Date Recorded In the last 10 days, have yo u been in contact with someone who was confirmed or suspected to have Coronavirus/COVID-19? No / Unsure 07/02/2022 3:01 PM CDT documented as of this encounter Plan of Treatment Not on file documented as of this encounter Visit Diagnoses Not on filedocumented in this encounter Care Teams Manufacturing Job Titles Relationship Specialty Start Date End Date Ceasar Maynard MD [address] [place] [id number] PCP - General INTERNAL MEDICINE 07/02/22 documented as of this encounter
--- OUTSIDE RECORDS SUMMARY | 2024-10-14 11:31 | XMS_ITS | Encounter Summary ---
Author Organization [facility] Address [address] [place] [address]. [place], [place] [address] [place] [id number] Care Team Providers Care Milling Machine Set Up Operator Name Role Phone Ceasar Maynard MD Primary Care Provider [phone] Encounter Details Date Type Department Care Team (Latest Contact Info) Description 09/23/2023 Travel Social History Tobacco Use Types Packs/Day Years Used Date Smoking Tobacco: Never Smokeless Tobacco: Never Alcohol Use Standard Drinks/Week Comments Yes 6.7 (1 standard drin k = 0.6 oz [...] on filedocumented in this encounter Care Teams Milling Machine Set Up Operator Relationship Specialty Start Date End Date Ceasar Maynard MD [address] [place] [id number] PCP - General INTERNAL MEDICINE 07/02/22 documented as of this encounter
--- OUTSIDE RECORDS SUMMARY | 2024-10-14 11:31 | XMS_ITS | Clinical Summary ---
Author Organization [facility] Address [address] [place] [address]. [place] [address] [place] [address] Care Team Providers Care Fpga Design Engineer Name Role Phone Ceasar Maynard MD Primary Care Provider [phone] Allergies No known active allergies Medications vitamin D2, ergocalciferol, (DRISDOL) 48855 UNITS capsule Take 1 capsule (50,000 Units total) by mouth once a week. 2 Active vitamin (VINATE M) 27-1 MG Tab tablet Take 1 tablet by mouth daily. Active probiotic (FLORAJEN3) Cap capsule Take 1 capsule by mouth daily with breakfast. 3 Active letrozole (FEMARA) 2.5 MG tablet Take 1 tablet (2.5 mg) by mouth once daily for 5 days; start on day 3 and continue until day 7 of your menstrual cycle 4 Active medroxyPROGESTE Ascencion (PROVERA) 10 MG tablet Take 1 tablet (10 mg total) by mouth daily. 4 Active Acetaminophen 500 MG Cap Take 1,000 mg by mouth every 6 (six) hours as needed. 4 Active Active Problems Problem Noted Date Diagnosed Date Secondary female infertility 07/03/2024 PCOS (polycystic ovarian syndrome) 12/17/2023 Resolved Problems Problem Noted Date Diagnosed Date Resolved Date Acute non-recurrent frontal sinusitis 08/06/2023 07/03/2024 Routine general medical exam ination at a health care facility 07/05/2023 07/12/2023 Encounters Date Type Department Care Team Description 10/07/2024 Scan HEALTH INFO SRVCS Scanned, Doc [facility] Lab (SCAN) from Last 3 Months Immunizations Name Administration Dates Next Due Influenza Adult (Generic) 07/22/2022,07/24/2020 MODERNA COVID-19 (12+) MRNA, LNP-S, PF, 100 MCG/ 0.5 ML DOSE 08/13/2021,12/17/2020,11/19/2020 Tdap (Generic) 07/24/2020 Family History Medical History Relation Comments No Known Problems Father Lung Cancer Maternal Grandfather Breast Cancer Maternal Grandmother Heart Disease Maternal Grandmother Hypertension Mother Discovered high blood pressure during cataract surgery. Maintained on meds. Miscarriages / Stillbirths Mother Misca rriage before of my oldest sister (born 1984) Vision loss Mother Developed catara cts that was noticed this year. Surgically repaired. Alzheimer's disease Paternal Grandfather CHF Paternal Grandmother Cancer Paternal Grandmother Breast canc er 2021. In remission. No Known Problems Sister 1 No Known Problems Sister 2 Relation Status Comments Father Alive Maternal Grandfather Maternal Grandmother Alive Mother Alive Paternal Grandfather Paternal Grandmother Alive Sister 1 Alive Sister 2 Alive Social History Tobacco Use Types Packs/Day Years Used Date Smoking Tobacco: Never Smokeless Tobacco: Never Tobacco Cessation:Counseling Given: No Alcohol Use Standard Drinks/Week Comments Yes 1.7 [...] on file Sexual Orientation Not on file Last Filed Vital Signs Vital Sign Reading Time Taken Comments Blood Pressure 102/62 07/03/2024 8:05 AM CDT Pulse 79 07/03/2024 8:05 AM CDT Temperature 36.2 ??C (97.1 ??F) 07/03/2024 8:05 AM CD T Respiratory Rate 16 07/03/2024 8:05 AM CDT Oxygen Saturation 98% 07/03/2024 8:05 AM CDT Inhaled Oxygen Concentration - - Weight 79.5 kg (175 lb 3.2 oz) 07/03/2024 8:05 A M CDT Height 175.3 cm (5' 9 ) 07/03/2024 8:05 AM CDT Body Mass Index 25.87 07/03/2024 8:05 AM CDT Plan of Treatment Health Maintenance Due Date Last Done Comments Cervical Cancer Screening Pap Smear (Age 30 to 64) Every 3 Years 1994 Hepatitis C 2012 Hepatitis B Vaccines (1 of 3 - 19+ 3-dose series) 2013 COVID-19 Vaccine ( season) 2024 07/08/2022, 08/13/2021, 12/17/2020, Additional history exists Influenza Adult (#1) 2024 07/22/2022, 07/24/20 20 Cervical Cancer Screening Pap with HPV Testing (Age 30 to 64) Every 5 Years 2024 Cervical Cancer Screening with HPV 2024 Annual Physical 07/03/2025 07/03/2024, 06/18, 07/02/2022 DTaP, Tdap and Td Vaccines (2 - Td or Tdap) 07/24/2030 07/24/2020 HPV Vaccines Aged Out No longer eligi ble based on patient's age to complete this topic Meningococcal Vaccine Aged Out No natalia ana m eligible based on patient's age to complete this topic Pneumococcal Vaccine: Pediatrics (0 to 5 Years) and At-Risk Patients (6 to 64 Years) Aged Out No longer eligible based on patient's age to complete this topic RSV Immunizations Under 20 Months Aged Out No longer eligible based on patient's age to complete this topic Procedures Procedure Name Priority Date/Time Associated Diagnosis Comments OUTSIDE LAB (SCAN ORDER) 10/07/2024 from Last 3 Months Results * OUTSIDE LAB (SCAN ORDER) (10/07/2024) 10/07/2024 us [facility] Scanned SCANNING Final Resu lt from Last 3 Months Insurance CIG Care Teams Fpga Design Engineer Relationship Specialty Start Date End Date Ceasar Maynard MD [address] [place] [id number] PCP - General INTERNAL MEDICINE 07/02/22
--- OUTSIDE RECORDS SUMMARY | 2024-10-14 11:31 | XMS_ITS | Encounter Summary ---
Author Organization [facility] Address [address] [place] [address]. [place] [address] [place] [address] Care Team Providers Care Autocad Name Role Phone Ceasar Maynard MD Primary Care Provider [phone] Reason for Visit * Reason Comments Lab (SCAN) Encounter Details Date Type Department Care Team (Latest Contact Info) Description 07/04/2024 Scan HEALTH INFO SRVCS Scanned, Doc Med Group Lab (SCAN) Social History Tobacco Use Types Packs/Day Years [...] on file documented as of this encounter Procedures Procedure Name Priority Date/Time Associated Diagnosis Comments OUTSIDE LAB (SCAN ORDER) 07/04/2024 documented in this encounter Results * OUTSIDE LAB (SCAN ORDER) (07/04/2024) 07/04/2024 us [facility] Scanned SCANNING Final Resu lt documented in this encounter Visit Diagnoses Not on filedocumented in this encounter Additional Health Concerns Assessment Noted Time PHQ-9 Depression Total Score: 13 024 8:09 AM CDT documented as of this encounter Care Teams Autocad Relationship Specialty Start Date End Date Ceasar Maynard MD [address] [place] [address] [phone] PCP - General INTERNAL MEDICINE 07/02/22 documented as of this encounter
--- OUTSIDE RECORDS SUMMARY | 2024-10-14 11:31 | XMS_ITS | Encounter Summary ---
Author Organization [facility] Address [address] [place] [address]. [place] [address] [place] [address] Care Team Providers Care Business Project Analyst Name Role Phone Ceasar Maynard MD Primary Care Provider [phone] Reason for Visit * Reason Comments Image (SCAN) Encounter Details Date Type Department Care Team (Latest Contact Info) Description 02/21/2024 Scan HEALTH INFO SRVCS Scanned, Doc Med Group Image (SCAN) Social History Tobacco Use Types Packs/Day [...] Procedure Name Priority Date/Time Associated Diagnosis Comments IMAGE GENERIC 02/21/2024 documented in this encounter Results * IMAGE GENERIC (02/21/2024) Anatomical Region Laterality Modality Other 02/21/2024 us Doc [facility] Scanned SCANNING Final Resu lt documented in this encounter Visit Diagnoses Not on filedocumented in this encounter Care Teams Business Project Analyst Relationship Specialty Start Date End Date Ceasar Maynard MD [address] [place] [id number] PCP - General INTERNAL MEDICINE 07/02/22 documented as of this encounter
--- OUTSIDE RECORDS SUMMARY | 2024-10-14 11:31 | XMS_ITS | Encounter Summary ---
Author Organization [facility] Address [address] [place] [address]. [place], [place] [address] [place] [address] Care Team Providers Care Seasonal Recruiter Name Role Phone Ceasar Maynard MD Primary Care Provider [phone] Encounter Details Date Type Department Care Team (Latest Contact Info) Description 08/06/2023 Travel Social History Tobacco Use Types Packs/Day [...] on filedocumented in this encounter Care Teams Seasonal Recruiter Relationship Specialty Start Date End Date Ceasar Maynard MD [address] [place] [id number] PCP - General INTERNAL MEDICINE 07/02/22 documented as of this encounter
--- OUTSIDE RECORDS SUMMARY | 2024-10-14 11:31 | XMS_ITS | Encounter Summary ---
Author Organization [facility] Address [address] [place] [address]. [place] [address] [place] [address] Care Team Providers Care Home Stereo Equipment Installer Name Role Phone Ceasar Maynard MD Primary Care Provider [phone] Reason for Visit * Reason Comments Lab (SCAN) Ultrasound (SCAN) Encounter Details Date Type Department Care Team (Late st Contact Info) Description 06/25/2024 Scan HEALTH INFO SRVCS Scanned, Doc Med Group Lab (SCAN); Ultrasound (SCAN) Social History Tobacco Use Types Packs/Day [...] Name Priority Date/Time Associated Diagnosis Comments OUTSIDE PT/INR (SCAN ORDER) 06/25/2024 OUTSIDE LAB (SCAN ORDER) 06/25/2024 OUTSIDE LAB (SCAN ORDER) 06/25/2024 OUTSIDE LAB (SCAN ORDER) 06/25/2024 ULTRASOUND GENERIC (SCAN ORDER) 06/25/2024 documented in this encounter Results * OUTSIDE PT/INR (SCAN ORDER) (06/25/2024) 06/25/2024 us Doc [facility] Scanned SCANNING Final Resu lt * OUTSIDE LAB (SCAN ORDER) (06/25/2024) 06/25/2024 us [facility] Scanned SCANNING Final Resu lt * OUTSIDE LAB (SCAN ORDER) (06/25/2024) 06/25/2024 us [facility] Scanned SCANNING Final Resu lt * OUTSIDE LAB (SCAN ORDER) (06/25/2024) 06/25/2024 us [facility] Scanned SCANNING Final Resu lt * ULTRASOUND GENERIC (SCAN ORDER) (06/25/2024) Anatomical Region Laterality Modality Other 06/25/2024 us [facility] Scanned SCANNING Final Resu lt documented in this encounter Visit Diagnoses Not on filedocumented in this encounter Care Teams Home Stereo Equipment Installer Relationship Specialty Start Date End Date Ceasar Maynard MD [address] [place] [id number] PCP - General INTERNAL MEDICINE 07/02/22 documented as of this encounter
--- OUTSIDE RECORDS SUMMARY | 2024-10-14 11:31 | XMS_ITS | Encounter Summary ---
Author Organization [facility] Address [address] [place] [address]. [place] [address] [place] [address] Care Team Providers Care Weeder Name Role Phone Ceasar Maynard MD Primary Care Provider [phone] Reason for Visit * Reason Comments Cough X 1 month Sinus Pressure C/o sinus pressure o ff and on Encounter Details Date Type Department Care Team (Late st Contact Info) Description 08/06/2023 11:00 AM CDT Office Visit [facility] Family & Internal Medicine [address] [phone] Ethel Mandel FNP [address] [place] [address] [phone] Cough (X 1 month); Sinus Pressure (C/o sinus pressure off and on) Social History Tobacco Use Types Packs/Day Years Used Date Smoking Tobacco: Never Smokeless Tobacco: Never Tobacco Cessation:Counseling Given: Not Answered Alcohol Use Standard Drinks/Week Comments Yes 6.7 [...] on file documented as of this encounter Last Filed Vital Signs Vital Sign Reading Time Taken Comments Blood Pressure 118/72 08/06/2023 11:08 AM CDT Pulse 101 08/06/2023 11:08 AM CDT Temperature 36.8 ??C (98.2 ??F) 08/06/2023 11:08 AM C DT Respiratory Rate 16 08/06/2023 11:08 AM CDT Oxygen Saturation 98% 08/06/2023 11:08 AM CDT Inhaled Oxygen Concentration - - Weight 81.2 kg (179 lb) 08/06/2023 11:08 AM CDT Height 175.3 cm (5' 9 ) 08/06/2023 11:08 AM CDT Body Mass Index 26.43 08/06/2023 11:08 AM CDT documented in this encounter Patient Instructions * Patient Instructions* MANOHAR Simpson - 08/06/2023 11:00 AM CDT Take medications as prescribed and call for any issues or concerns Follow-up routinely with your PCP or sooner if needed, especially if your symptoms do not improve As discussed you can continue jaos-bwi-nsihmwu medications as needed for symptom relief documented in this encounter Progress Notes * MANOHAR Simpson - 08/06/2023 11:00 AM CDTSummary: Acute sinusitis Office Progress Note Reason for Visit: Cough (X 1 month) and Sinus Pressure (C/o sinus pressure off and on) History of Present Illness: Milagros presents to the office for sinus/URI sxs for the last month. She has been using mucinex and otc allergy medications without relief. She denies any fever, body aches, chills. She reports that she also has sinus pressure behind her eyes and having teeth pain. She reports that her cough is productive at times. ROS: Review of Systems Constitutional: Negative for chills, diaphoresis, fever, malaise/fatigue and weight loss. HENT: Positive for congestion and sinus pain. Negative for ear discharge, ear pain, hearing loss, nosebleeds, sore throat and tinnitus. Eyes: Negative for blurred vision, double vision, photophobia, pain, discharge and redness. Respiratory: Positive for cough and sputum production. Negative for hemoptysis, shortness of breath, wheezing and stridor. Cardiovascular: Negative for chest pain, palpitations, orthopnea, claudication, leg swelling and PND. Gastrointestinal: Negative for abdominal pain, blood in stool, constipation, diarrhea, heartburn, melena, nausea and vomiting. Genitourinary: Negative for dysuria, flank pain, frequency, hematuria and urgency. Musculoskeletal: Negative for back pain, falls, joint pain, myalgias and neck pain. Skin: Negative for itching and rash. Neurological: Positive for headaches. Negative for dizziness, tingling, tremors, sensory change, speech change, focal weakness, seizures, loss of consciousness and weakness. Endo/Heme/Allergies: Negative for environmental allergies and polydipsia. Does not bruise/bleed easily. Psychiatric/Behavioral: Negative for depression, hallucinations, memory loss, substance abuse and suicidal ideas. The patient is not nervous/anxious and does not have insomnia. Medications: Current Outpatient Medications on File Prior to Visit Medication Sig vitamin (VINATE M) 27-1 MG Tab tablet Take 1 tablet by mouth daily. probiotic (FLORAJEN3) Cap capsule Take 1 capsule by mouth daily with breakfast. vitamin D2, ergocalciferol, (DRISDOL) 42062 UNITS capsule Take 1 capsule (50,000 Units total) by mouth once a week. No current facility-administered medications on file prior to visit. Allergies: Review of patient's allergies indicates: No Known Allergies Medical History: Past Medical History: Diagnosis Date Anxiety 10/18/2022 Started noticing some increased anxiety Surgical History: Past Surgical History: Procedure Laterality Date SECTION 10/27/2021 Baby was breach. EXCIS PRIMARY GANGLION WRIST Right 2010 Social History: Social History Socioeconomic History Marital status: Tobacco Use Smoking status: Never Smokeless tobacco: Never Vaping Use Vaping Use: Never used Substance and Sexual Activity Alcohol use: Yes Alcohol/week: 6.7 - 8.3 standard drinks Types: 4 - 5 Glasses of wine per week Comment: 1-2 glasses of wine 3-4 times a week Drug use: Never Sexual activity: Yes Partners: Male control/protection: None Comment: Trying for baby #2. Off bc since February of this year. Family History: Family History Problem Relation Name Age of Onset Hypertension Mother Moraima Cruz Discovered high blood pressure during cataract surgery. Maintained on meds. Miscarriages / Stillbirths Mother Moraima Cruz Miscarriage before of my oldest sister (born 1984) Vision loss Mother Moraima Cruz Developed cataracts that was noticed this year. Surgically repaired. No Known Problems Father No Known Problems Sister No Known Problems Sister Heart Disease Maternal Grandmother Jovon Cronin Breast Cancer Maternal Grandmother Jovon Cronin Lung Cancer Maternal Grandfather CHF Paternal Grandmother Zahira Cruz Cancer Paternal Grandmother Zahira Cruz Breast cancer 2021. In remission. Alzheimer's disease Paternal Grandfather PE: Physical Exam Vitals and nursing note reviewed. Constitutional: General: She is not in acute distress. Appearance: Normal appearance. She is well-developed and well-groomed. She is not ill-appearing, toxic-appearing or diaphoretic. HENT: Head: Normocephalic and atraumatic. Jaw: There is normal jaw occlusion. Right Ear: Hearing, tympanic membrane, ear canal and external ear normal. Left Ear: Hearing, tympanic membrane, ear canal and external ear normal. Nose: Congestion present. Right Sinus: Maxillary sinus tenderness and frontal sinus tenderness present. Left Sinus: Maxillary sinus tenderness and frontal sinus tenderness present. Mouth/Throat: Mouth: Mucous membranes are moist. Pharynx: Uvula midline. Posterior oropharyngeal erythema present. Eyes: General: Lids are normal. Vision grossly intact. Gaze aligned appropriately. Extraocular Movements: Extraocular movements intact. Conjunctiva/sclera: Conjunctivae normal. Neck: Thyroid: No thyroid mass, thyromegaly or thyroid tenderness. Vascular: Normal carotid pulses. No carotid bruit, hepatojugular reflux or JVD. Trachea: Trachea and phonation normal. Cardiovascular: Rate and Rhythm: Normal rate and regular rhythm. Heart sounds: Normal heart sounds. Pulmonary: Effort: Pulmonary effort is normal. No tachypnea, bradypnea, accessory muscle usage, prolonged expiration, respiratory distress or retractions. Breath sounds: Normal breath sounds and air entry. No stridor, decreased air movement or transmitted upper airway sounds. No decreased breath sounds, wheezing, rhonchi or rales. Abdominal: General: Abdomen is flat. Bowel sounds are normal. There is no distension or abdominal bruit. Thereare no signs of injury. Palpations: Abdomen is soft. Tenderness: There is no abdominal tenderness. Musculoskeletal: Cervical back: Full passive range of motion without pain, normal range of motion and neck supple. No edema, erythema, signs of trauma, rigidity, torticollis or crepitus. No pain with movement, spinous process tenderness or muscular tenderness. Normal range of motion. Lymphadenopathy: Cervical: No cervical adenopathy. Skin: General: Skin is warm and dry. Capillary Refill: Capillary refill takes less than 2 seconds. Findings: No rash. Neurological: Mental Status: She is alert and oriented to person, place, and time. Cranial Nerves: No cranial nerve deficit. Sensory: Sensation is intact. No sensory deficit. Motor: Motor function is intact. Coordination: Coordination is intact. Coordination normal. Gait: Gait is intact. Gait normal. Psychiatric: Attention and Perception: Attention and perception normal. Mood and Affect: Mood and affect normal. Speech: Speech normal. Behavior: Behavior normal. Behavior is cooperative. Thought Content: Thought content normal. Cognition and Memory: Cognition and memory normal. Judgment: Judgment normal. Filed Vitals: 08/06/23 1108 BP: 118/72 Pulse: (!) 101 Resp: 16 Temp: 98.2 ??F (36.8 ??C) SpO2: 98% Weight: 81.2 kg (179 lb) Height: 1.753 m (5' 9 ) Diagnoses/Impression: 1. Acute non-recurrent frontal sinusitis amoxicillin-clavulanate (AUGMENTIN) 875-125 MG tablet Recommendations and Plan: 1. Acute non-recurrent frontal sinusitis - amoxicillin-clavulanate (AUGMENTIN) 875-125 MG tablet; Take 1 tablet (875 mg total) by mouth 2 (two) times daily for 10 days. Dispense: 20 tablet; Refill: 0 Advised to take medication as prescribed and to call for any issues or concerns We discussed following up routinely or sooner if needed, especially if her symptoms do not improve over the next week Advised to continue biuv-ail-axoeokx medication as needed for symptom relief Orders Placed This Encounter amoxicillin-clavulanate (AUGMENTIN) 875-125 MG tablet Cannot display discharge medications since this is not an admission. PCP: MANOHAR SAUCEDA 08/06/2023 documented in this encounter Plan of Treatment Not on file documented as of this encounter Visit Diagnoses Diagnosis Acute non-recurrent frontal sinusitis- Primary documented in this encounter Care Teams Weeder Relationship Specialty Start Date End Date Ceasar Maynard MD [address] [place] [id number] PCP - General INTERNAL MEDICINE 07/02/22 documented as of this encounter
--- OUTSIDE RECORDS SUMMARY | 2024-10-14 11:31 | XMS_ITS | Encounter Summary ---
Author Organization [facility] Address [address] [place] [address]. [place] [address] [place] [address] Care Team Providers Care Nuclear Equipment Sales Engineer Name Role Phone Ceasar Maynard MD Primary Care Provider [phone] Reason for Visit * Reason Comments Lab (SCAN) Encounter Details Date Type Department Care Team (Latest Contact Info) Description 06/27/2024 Scan HEALTH INFO SRVCS Scanned, Doc Med [...] Associated Diagnosis Comments OUTSIDE LAB (SCAN ORDER) 06/27/2024 documented in this encounter Results * OUTSIDE LAB (SCAN ORDER) (06/27/2024) 06/27/2024 us Doc [facility] Scanned SCANNING Final Resu lt documented in this encounter Visit Diagnoses Not on filedocumented in this encounter Care Teams Nuclear Equipment Sales Engineer Relationship Specialty Start Date End Date Ceasar Maynard MD [address] [place] [id number] PCP - General INTERNAL MEDICINE 07/02/22 documented as of this encounter
--- OUTSIDE RECORDS SUMMARY | 2024-10-14 11:31 | XMS_ITS | Encounter Summary ---
Author Organization [facility] Address [address] [place] [address]. [place] [address] [place] [address] Care Team Providers Care Horseback Excavator Name Role Phone Ceasar Maynard MD Primary Care Provider [phone] Reason for Visit * Reason Onset Date Comments Throat Problem 09/23/2023 Encounter Details Date Type Department Care Team (Late st Contact Info) Description 09/23/2023 Telephone [facility] Family & Internal Medicine [id number] [place] [phone] Ceasar Maynard MD [facility] [place], [place] [phone] Throat Problem Social History Tobacco Use Types Packs/Day Years [...] on file documented as of this encounter Progress Notes * Carol Morrow - 09/23/2023 7:[address] Maynard had a cancellation on his schedule so she will be in at 1120am. 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 Apple watch is saying her heart rate is 120. Feltdizzy when getting out of bed this morning. Thinks she may have strep throat. [facility] in [place] [phone] ISH MAKER HELPER documented in this encounter Plan of Treatment Not on file documented as of this encounter Visit Diagnoses Not on filedocumented in this encounter Care Teams Horseback Excavator Relationship Specialty Start Date End Date Ceasar Maynard MD [address] [place] [id number] PCP - General INTERNAL MEDICINE 07/02/22 documented as of this encounter
--- OUTSIDE RECORDS SUMMARY | 2024-10-14 11:31 | XMS_ITS | Encounter Summary ---
Author Organization [facility] Address [address] [place] [address]. [place] [address] [place] [address] Care Team Providers Care Chief Of Internal Medicine Name Role Phone Ceasar Maynard MD Primary Care Provider [phone] Reason for Visit * Reason Comments Physical Encounter Details Date Type Department Care Team (Late st Contact Info) Description 07/02/2022 3:20 PM CDT Office Visit [facility] Family & Internal Medicine [address] [phone] Ceasar Maynard MD [address] [place] [address] [phone] Physical Social History Tobacco Use Types Packs/Day Years [...] PM CDT documented as of this encounter Last Filed Vital Signs Vital Sign Reading Time Taken Comments Blood Pressure 104/60 07/02/2022 3:46 PM CDT Pulse 96 07/02/2022 3:46 PM CDT Temperature 36.9 ??C (98.4 ??F) 07/02/2022 3:46 PM CD T Respiratory Rate 12 07/02/2022 3:46 PM CDT Oxygen Saturation 99% 07/02/2022 3:46 PM CDT Inhaled Oxygen Concentration - - Weight 73.6 kg (162 lb 4.8 oz) 07/02/2022 3:46 P M CDT Height 175.3 cm (5' 9 ) 07/02/2022 3:46 PM CDT Body Mass Index 23.97 07/02/2022 3:46 PM CDT documented in this encounter Progress Notes * Ceasar Maynard MD - 07/02/2022 3:20 PM CDT The patient is being seen for a health maintenance evaluation. This is the patient's first visit. General Health: Excellent Dental Health: Sees dentist regularly, Brushes regularly and Flosses regularly Vision Health: Wears glasses, Wears contacts and Last eye exam < 1 year ago Hearing Health: No hearing problems Immunizations Needed: up to date Weight: Normal BMI Physical Activity: Excersises regularly Sexual Activity: Social History Substance and Sexual Activity Sexual Activity Not on file Cervical Cancer Screening: up to date Breast Cancer Screening: M/A Colorectal Cancer Screening: None Metabolic Screening: Up to date done through [facility] Risks Cardiovascular Risk Factors: None General Health Risks: none Safety Elements Used: Seat belts, Safe driving habits, Sunscreen, Smoke detector and Carbon monoxide detector Review of Systems Constitutional: Negative for malaise/fatigue and weight loss. HENT: Negative for congestion, ear pain, hearing loss and tinnitus. Eyes: Negative for blurred vision. Respiratory: Negative for cough, shortness of breath and wheezing. Cardiovascular: Negative for chest pain, palpitations, claudication, leg swelling and PND. Gastrointestinal: Negative for abdominal pain, heartburn and vomiting. Genitourinary: Negative for dysuria and frequency. Musculoskeletal: Negative for back pain, joint pain and myalgias. Skin: Negative for itching and rash. Neurological: Negative for weakness and headaches. Psychiatric/Behavioral: Negative for depression. The patient does not have insomnia. There is no problem list on file for this patient. History reviewed. No pertinent past medical history. Past Surgical History: Procedure Laterality Date ??? EXCIS PRIMARY GANGLION WRIST Right 2010 Family History Problem Relation Name Age of Onset ??? No Known Problems Mother ??? No Known Problems Father ??? No Known Problems Sister ??? No Known Problems Sister ??? Heart Disease Maternal Grandmother ??? Breast Cancer Maternal Grandmother ??? Lung Cancer Maternal Grandfather ??? CHF Paternal Grandmother ??? Alzheimer's disease Paternal Grandfather Social History Socioeconomic History ??? Marital status: Spouse name: Not on file ??? Number of children: Not on file ??? Years of education: Not on file ??? Highest education level: Not on file Occupational History ??? Not on file Tobacco Use ??? Smoking status: Never Smoker ??? Smokeless tobacco: Never Used Vaping Use ??? Vaping Use: Never used Substance and Sexual Activity ??? Alcohol use: Yes Alcohol/week: 13.3 standard drinks Types: 8 Glasses of wine per week Comment: 1-2 glasses of wine 3-4 times a week ??? Drug use: Never ??? Sexual activity: Not on file Other Topics Concern ??? Not on file Social History Narrative ??? Not on file Social Determinants of Health Financial Resource Strain: Not on file Food Insecurity: Not on file Transportation Needs: Not on file Physical Activity: Not on file Stress: Not on file Social Connections: Not on file Intimate Partner Violence: Not on file Housing Stability: Not on file Immunization History Administered Date(s) Administered ??? Influenza Adult (Generic) 07/24/2020 ??? MODERNA COVID-19, MRNA, LNP-S, PF, 100 MCG/ 0.5 ML DOSE 11/19/2020, 12/17/2020, 08/13/2021 ??? Tdap (Generic) 07/24/2020 Current Outpatient Medications Medication Sig Dispense Refill ??? NORETHINDRONE OR Take 0.35 mg by mouth daily. ??? vitamin (VINATE M) 27-1 MG Tab tablet Take 1 tablet by mouth daily. ??? vitamin D2, ergocalciferol, (DRISDOL) 77664 UNITS capsule Take 50,000 Units by mouth once a week. No current facility-administered medications for this visit. Current Outpatient Medications on File Prior to Visit Medication Sig ??? NORETHINDRONE OR Take 0.35 mg by mouth daily. ??? vitamin (VINATE M) 27-1 MG Tab tablet Take 1 tablet by mouth daily. ??? vitamin D2, ergocalciferol, (DRISDOL) 78691 UNITS capsule Take 50,000 Units by mouth once a week. No current facility-administered medications on file prior to visit. No Known Allergies Objective: Vitals: 07/02/22 1546 BP: 104/60 Pulse: 96 Resp: 12 Temp: 98.4 ??F (36.9 ??C) SpO2: 99% Physical Exam HENT: Head: Normocephalic and atraumatic. Right Ear: External ear normal. Left Ear: External ear normal. Nose: Nose normal. Eyes: Conjunctiva/sclera: Conjunctivae normal. Pupils: Pupils are equal, round, and reactive to light. Cardiovascular: Rate and Rhythm: Normal rate and regular rhythm. Heart sounds: Normal heart sounds. Pulmonary: Effort: Pulmonary effort is normal. Breath sounds: Normal breath sounds. Abdominal: General: Bowel sounds are normal. Palpations: Abdomen is soft. Musculoskeletal: General: Normal range of motion. Cervical back: Normal range of motion and neck supple. Skin: General: Skin is warm and dry. Neurological: Mental Status: She is alert and oriented to person, place, and time. Gait: Gait is intact. Psychiatric: Mood and Affect: Mood and affect normal. Assessment: There is no problem list on file for this patient. Plan: Milagros was seen today for physical. Diagnoses and all orders for this visit: Routine general medical examination at a health care facility Discussion/Summary: Doing well overall Encouraged to continue with regular exercise Follow up for yearly physical CEASAR MAYNARD MD documented in this encounter Plan of Treatment Not on file documented as of this encounter Visit Diagnoses Diagnosis Routine general medical examination at a health care facility- Primary documented in this encounter Care Teams Chief Of Internal Medicine Relationship Specialty Start Date End Date Ceasar Maynard MD [address] [place] [id number] PCP - General INTERNAL MEDICINE 07/02/22 documented as of this encounter
--- OUTSIDE RECORDS SUMMARY | 2024-10-14 11:31 | XMS_ITS | Encounter Summary ---
Author Organization [facility] Address [address] [place] [address]. [place] [address] [place] [address] Care Team Providers Care Timber Treatment Plant Operator Name Role Phone Ceasar Maynard MD Primary Care Provider [phone] Reason for Visit * Reason Comments Sore Throat Symptoms started Wed09/21/23. Fever Headache Earache Body Aches Chills Encounter Details Date Type Department Care Team (Late st Contact Info) Description 09/23/2023 11:20 AM PROGRAM DIRECTOR/MUSIC DIRECTOR Office Visit [facility] Family & Internal Medicine [address] [phone] Ceasar Maynard MD [address] [place] [address] [phone] Sore Throat (Symptoms started Wednesday09/21/23.); Fever; Headache; Earache; Body Aches; Chills Social History Tobacco Use Types Packs/Day Years [...] Sign Reading Time Taken Comments Blood Pressure 100/60 09/23/2023 12:15 PM PROGRAM DIRECTOR/MUSIC DIRECTOR Pulse 136 09/23/2023 12:15 PM PROGRAM DIRECTOR/MUSIC DIRECTOR Temperature 38.1 ??C (100.6 ??F) 09/23/2023 12:15 PM PROGRAM DIRECTOR/MUSIC DIRECTOR Respiratory Rate 18 09/23/2023 12:15 PM PROGRAM DIRECTOR/MUSIC DIRECTOR Oxygen Saturation 98% 09/23/2023 12:15 PM PROGRAM DIRECTOR/MUSIC DIRECTOR Inhaled Oxygen Concentration - - Weight 80.3 kg (177 lb 1.6 oz) 09/23/2023 12:15 PM PROGRAM DIRECTOR/MUSIC DIRECTOR Height 175.3 cm (5' 9 ) 09/23/2023 12:15 PM PROGRAM DIRECTOR/MUSIC DIRECTOR Body Mass Index 26.15 09/23/2023 12:15 PM PROGRAM DIRECTOR/MUSIC DIRECTOR documented in this encounter Progress Notes * Ceasar Maynard MD - 09/23/2023 11:20 AM CST Images from the original note were not included. Office Progress Note Reason for Visit: Sore Throat (Symptoms started Wednesday09/21/23.), Fever, Headache, Earache, Body Aches, and Chills History of Present Illness: She is here today complaining of a sore throat that started 2 days ago. She has low-grade fever, headache and her right ear has been bothering her. She has had chills today. And bodyaches today. She has no cough. No loss of smell or taste. No nausea or vomiting. She denies nasal congestion. She hasno exposure to anyone with COVID or influenza that she is aware. She has been taking [id number]-[id number] medications without much relief of her symptoms. ROS: Review of Systems Constitutional: Positive for chills and fever. Negative for malaise/fatigue and weight loss. HENT: Positive for sore throat. Negative for congestion, ear pain, hearing loss, nosebleeds, sinus pain and tinnitus. Eyes: Negative for blurred vision. [...] depression. The patient does not have insomnia. Medications: Current Outpatient Medications on File Prior to Visit Medication Sig vitamin (VINATE M) 27-1 MG Tab tablet Take 1 tablet by mouth daily. probiotic (FLORAJEN3) Cap capsule Take 1 capsule by mouth daily with breakfast. vitamin D2, ergocalciferol, (DRISDOL) 87733 UNITS capsule Take 1 capsule (50,000 Units total) by mouth once a week. No current facility-administered medications on file prior to visit. Allergies: No Known Allergies Medical History: Past Medical [...] Yes Alcohol/week: 6.7 - 8.3 standard drinks of alcohol Types: 4 - 5 Glasses of wine [...] nursing note reviewed. Constitutional: General: She is awake. Appearance: Normal appearance. She is normal weight. HENT: Head: Normocephalic and atraumatic. Right Ear: Hearing, tympanic membrane, ear canal and external ear normal. Left Ear: Hearing, tympanic membrane, ear canal and external ear normal. Nose: Nose normal. Mouth/Throat: Lips: Rodey. Mouth: Mucous membranes are moist. Pharynx: Oropharyngeal exudate and posterior oropharyngeal erythema present. Tonsils: No tonsillar exudate or tonsillar abscesses. Neurological: Mental Status: She is alert. Psychiatric: Behavior: Behavior is cooperative. Filed Vitals: 09/23/23 1215 BP: 100/60 Pulse: (!) 136 Resp: 18 Temp: 100.6 ??F (38.1 ??C) TempSrc: Skin SpO2: 98% Weight: 80.3 kg (177 lb 1.6 oz) Height: 1.753 m (5' 9 ) Diagnoses/Impression: 1. Pharyngitis, unspecified etiology RAPID STREP A amoxicillin (AMOXIL) 875 MG tablet Recommendations and Plan: 1. Pharyngitis, unspecified etiology Start on antibiotics as prescribed Call if not improving or if symptoms are changing. - RAPID STREP A - amoxicillin (AMOXIL) 875 MG tablet; Take 1 tablet (875 mg total) by mouth 2 (two) times daily for10 days. Dispense: 20 tablet; Refill: 0 Orders Placed This Encounter amoxicillin (AMOXIL) 875 MG tablet RAPID STREP A PCP: CEASAR MAYNARD MD 09/23/2023 RAM DIRECTOR/MUSIC DIRECTOR documented in this encounter Plan of Treatment Not on file documented as of this encounter Procedures Procedure Name Priority Date/Time Associated Diagnosis Comments RAPID STREP A Routine 09/23/2023 Pharyngitis, unspecified etiology documented in this encounter Results * RAPID STREP A (09/23/2023) RAPID STREP TEST NEGATIVE NEGATIVE [facility] Internal Control: VALID VALID [facility] STRUCTURE OF ANTERIOR PORTION OF NECK / Unknown 09/23/2023 us Ceasar Maynard MD MICROBIOLOGY - GENERAL ORDERAB LES Final Result [facility] [address] [place] [address], documented in this encounter Visit Diagnoses Diagnosis Pharyngitis, unspecified etiology- Primary documented in this encounter Care Teams Timber Treatment Plant Operator Relationship Specialty Start Date End Date Ceasar Maynard MD [address] [place] [address] PCP - General INTERNAL MEDICINE 07/02/22 documented as of this encounter
--- OUTSIDE RECORDS SUMMARY | 2024-10-14 11:31 | XMS_ITS | Encounter Summary ---
Author Organization [facility] Address [address] [place] [address]. [place] [address] [place] [address] Care Team Providers Care Collection Teller Name Role Phone Ceasar Maynard MD Primary Care Provider [phone] Reason for Visit * Reason Comments Physical Mole Change in mole since on left hip. Patients note it has been there since childhood. Anxiety Patient has been exp eriencing some post- anxiety and would like to speak with a counselor Encounter Details Date Type Department Care Team (Late st Contact Info) Description 07/05/2023 10:00 AM CDT Office Visit [facility] Family & Internal Medicine [address] [phone] Ceasar Maynard MD [address] [place] [address] [phone] Physical; Mole (Change in mole since on left hip. Patients note it has been there since childhood.); Anxiety (Patient has been experiencing some post- anxiety and would like to speak with a counselor ) Social History Tobacco Use Types Packs/Day Years [...] Sign Reading Time Taken Comments Blood Pressure 90/68 07/05/2023 10:45 AM CDT Pulse 66 07/05/2023 10:45 AM CDT Temperature 37.2 ??C (99 ??F) 07/05/2023 10: 45 AM CDT Respiratory Rate 14 07/05/2023 10:4 5 AM CDT Oxygen Saturation 98% 07/05/2023 10: 45 AM CDT Inhaled Oxygen Concentration - - Weight 82.5 kg (181 lb 12.8 oz) 023 10:45 AM CDT Height 175.3 cm (5' 9 ) 07/05/2023 10:4 5 AM CDT Body Mass Index 26.85 07/05/2023 10:45 AM CDT documented in this encounter Progress Notes * Ceasar Maynard MD - 07/05/2023 10:00 AM CDT Images from the original note were not included. The patient is being seen for a health maintenance evaluation. The last health maintenance exam was1 year ago. General Health: good Dental Health: Sees dentist regularly, Brushes regularly, and Flosses regularly Vision Health: Wears glasses and Last eye exam < 1 year ago Hearing Health: No hearing problems Immunizations Needed: up to date Weight: Normal BMI Physical Activity: Excercises occaisonally Sexual Activity: Social History Substance and Sexual Activity Sexual Activity Yes Partners: Male control/protection: None Comment: Trying for baby #2. Off bc since February of this year. Cervical Cancer Screening: up to date Breast Cancer Screening: N/A Colorectal Cancer Screening: None Health Risks Cardiovascular Risk Factors: None General Health Risks: none Safety Elements Used: Seat belts, Safe driving habits, Sunscreen, Smoke detector, and Carbon monoxide detector Review of Systems [...] depression. The patient does not have insomnia. Patient Active Problem List Diagnosis Routine general medical examination at a health care facility Past Medical History: Diagnosis Date Anxiety 10/18/2022 Started noticing some increased anxiety Past Surgical History: Procedure Laterality Date SECTION 10/27/2021 Baby was breach. EXCIS PRIMARY GANGLION WRIST Right 2009 Family History Problem Relation Name Age of [...] Known Problems Sister Heart Disease Maternal Grandmother Joovn Cronin Breast Cancer Maternal Grandmother Jovon Cronin Lung Cancer Maternal Grandfather CHF Paternal Grandmother Zahira Cruz Cancer Paternal Grandmother Zaihra Cruz Breast cancer 2021. In remission. Alzheimer's disease Paternal Grandfather Social History Socioeconomic History Marital status: Spouse name: Not on file Number of children: Not on file Years of education: Not on file Highest education level: Not on file Occupational History Not on file Tobacco Use Smoking status: Never Smokeless tobacco: [...] Off bc since February of this year. Other Topics Concern Not on file Social History Narrative Not on file Social Determinants of Health Financial Resource Strain: Not on file Food Insecurity: Not on file Transportation Needs: Not on file Physical Activity: Not on file Stress: Not on file Social Connections: Not on file Intimate Partner Violence: Not on file Housing Stability: Not on file Immunization History Administered Date(s) Administered Influenza Adult (Generic) 07/24/2020, 07/22/2022 MODERNA COVID-19 (12+) MRNA, LNP-S, PF, 100 MCG/ 0.5 ML DOSE 11/19/2020, 12/17/2020, 08/13/2021 PFIZER COVID-19 BIVALENT (12+) mRNA, LNP-S, PF, 30 MCG/0.3 ML DOSE 07/08/2022 Tdap (Generic) 07/24/2020 Current Outpatient Medications Medication Sig Dispense Refill vitamin (VINATE M) 27-1 MG Tab tablet Take 1 tablet by mouth daily. probiotic (FLORAJEN3) Cap capsule Take 1 capsule by mouth daily with breakfast. vitamin D2, ergocalciferol, (DRISDOL) 78888 UNITS capsule Take 1 capsule (50,000 Units total) by mouth once a week. No current facility-administered medications for this visit. Current Outpatient Medications on File Prior to Visit Medication Sig vitamin (VINATE M) 27-1 MG Tab tablet Take 1 tablet by mouth daily. probiotic (FLORAJEN3) Cap capsule Take 1 capsule by mouth daily with breakfast. vitamin D2, ergocalciferol, (DRISDOL) 40678 UNITS capsule Take 1 capsule (50,000 Units total) by mouth once a week. No current facility-administered medications on file prior to visit. Review of patient's allergies indicates: No Known Allergies Objective: Vitals: 07/05/23 1045 BP: 90/68 Pulse: 66 Resp: 14 Temp: 99 ??F (37.2 ??C) SpO2: 98% Physical Exam Vitals and nursing note reviewed. Constitutional: Appearance: Normal appearance. HENT: Head: Normocephalic and atraumatic. Right Ear: Tympanic membrane, ear canal and external ear normal. Left Ear: Tympanic membrane, ear canal and external ear normal. Nose: Nose normal. Mouth/Throat: Mouth: Mucous membranes are moist. Pharynx: Oropharynx is clear. Eyes: Extraocular Movements: Extraocular movements intact. Conjunctiva/sclera: Conjunctivae normal. Pupils: Pupils are equal, [...] General: Skin is warm and dry. Neurological: General: No focal deficit present. Mental Status: She is alert and oriented to person, place, and time. Gait: Gait is intact. Psychiatric: Mood and Affect: Mood and affect normal. Behavior: Behavior normal. Thought Content: Thought content normal. Assessment: Patient Active Problem List Diagnosis Routine general medical examination at a health care facility Plan: Milagros was seen today for physical, mole and anxiety. Diagnoses and all orders for this visit: Routine general medical examination at a health care facility Discussion/Summary: Doing well overall. Encouraged to continue with regular exercise Immunizations are up to date. Follow up for annual physical. CEASAR MAYNARD MD documented in this encounter Plan of Treatment Not on file documented as of this encounter Visit Diagnoses Diagnosis Routine general medical examination at a health care facility- Primary documented in this encounter Care Teams Collection Teller Relationship Specialty Start Date End Date Ceasar Maynard MD [address] [place] [id number] PCP - General INTERNAL MEDICINE 07/02/22 documented as of this encounter
--- OUTSIDE RECORDS SUMMARY | 2024-10-14 11:31 | XMS_ITS | Encounter Summary ---
Author Organization [facility] Address [address] [place] [address]. [place] [address] [place] [address] Care Team Providers Care Information Technology Project Manager Name Role Phone Ceasar Maynard MD Primary Care Provider [phone] Reason for Visit * Reason Comments Physical Encounter Details Date Type Department Care Team (Late st Contact Info) Description 07/03/2024 8:00 AM CDT Office Visit [facility] Group Family & Internal Medicine - [address] [phone] Ceasar Maynard MD [address] [place] [address] [phone] Physical Social History Tobacco Use Types Packs/Day [...] Mass Index 25.87 07/03/2024 8:05 AM CDT documented in this encounter Progress Notes * Ceasar Maynard MD - 07/03/2024 8:00 AM CDT Images from the original note were not included. The patient is being seen for a health maintenance evaluation. The last health maintenance exam was1 year ago. General Health: good Dental Health: Sees dentist regularly, Brushes regularly, and Flosses regularly Vision Health: Wears contacts and Last eye exam > 1 year ago Hearing Health: No hearing problems Immunizations Needed: up to date Weight: Normal BMI Physical Activity: Excersises regularly Sexual Activity: Social History Substance and Sexual Activity Sexual Activity Yes Partners: Male control/protection: None Comment: Trying for baby #2. Off bc since February of 2023. Cervical Cancer Screening: up to date Breast Cancer Screening: N/A Colorectal Cancer Screening: None Metabolic Screening: Done through OB [facility] recently. Health Risks Cardiovascular Risk Factors: None General Health Risks: none Safety Elements Used: Seat belts, Safe driving habits, Sunscreen, Smoke detector, and Carbon monoxide detector Review of Systems All other systems reviewed and are negative. Patient Active Problem List Diagnosis PCOS (polycystic ovarian syndrome) Secondary female infertility Past Medical History: Diagnosis Date Anxiety 10/18/2022 [...] Never Smokeless tobacco: Never Vaping Use Vaping status: Never Used Substance and Sexual Activity Alcohol use: Yes Alcohol/week: 1.7 - 5.0 standard drinks of alcohol Types: 1 - 3 Glasses of wine per week Comment: 1-2 glasses of wine 3-4 times a week Drug use: Never Sexual activity: Yes Partners: Male control/protection: None Comment: Trying for baby #2. Off bc since February of 2023. Other Topics Concern Not on file Social [...] Current Outpatient Medications Medication Sig Dispense Refill letrozole (FEMARA) 2.5 MG tablet Take 1 tablet (2.5 mg) by mouth once daily for 5 days; start on day 3 and continue until day 7 of your menstrual cycle vitamin (VINATE M) 27-1 MG Tab tablet Take 1 tablet by mouth daily. probiotic (FLORAJEN3) Cap capsule Take 1 capsule by mouth daily with breakfast. vitamin D2, ergocalciferol, (DRISDOL) 36587 UNITS capsule Take 1 capsule (50,000 Units total) by mouth once a week. Acetaminophen 500 MG Cap Take 1,000 mg by mouth every 6 (six) hours as needed. (Patient not taking:Reported on 07/03/2024) medroxyPROGESTERone (PROVERA) 10 MG tablet Take 1 tablet (10 mg total) by mouth daily. (Patient nottaking: Reported on 07/03/2024) No current facility-administered medications for this visit. Current Outpatient Medications on File Prior to Visit Medication Sig letrozole (FEMARA) 2.5 MG tablet Take 1 tablet (2.5 mg) by mouth once daily for 5 days; start on day 3 and continue until day 7 of your menstrual cycle vitamin (VINATE M) 27-1 MG Tab tablet Take 1 tablet by mouth daily. probiotic (FLORAJEN3) Cap capsule Take 1 capsule by mouth daily with breakfast. vitamin D2, ergocalciferol, (DRISDOL) 76173 UNITS capsule Take 1 capsule (50,000 Units total) by mouth once a week. Acetaminophen 500 MG Cap Take 1,000 mg by mouth every 6 (six) hours as needed. (Patient not taking:Reported on 07/03/2024) medroxyPROGESTERone (PROVERA) 10 MG tablet Take 1 tablet (10 mg total) by mouth daily. (Patient nottaking: Reported on 07/03/2024) No current facility-administered medications on file prior to visit. Review of patient's allergies indicates: No Known Allergies Objective: Vitals: 07/03/24 0805 BP: 102/62 Pulse: 79 Resp: 16 Temp: 97.1 ??F (36.2 ??C) SpO2: 98% Physical Exam Vitals and [...] normal. Assessment: Patient Active Problem List Diagnosis PCOS (polycystic ovarian syndrome) Secondary female infertility Plan: Milagros was seen today for physical. Diagnoses and all orders for this visit: Routine general medical examination at a health care facility Discussion/Summary: Doing well overall Following with OB Gyne with recent miscarriage and infertility Labs and immunizations are up to date. Continue with regular exercise Follow up in 1 year. CEASAR MAYNARD MD documented in this encounter Plan of Treatment Not on file documented as of this encounter Visit Diagnoses Diagnosis Routine general medical examination at a health care facility- Primary documented in this encounter Additional Health Concerns Assessment Noted Time PHQ-9 Depression Total Score: 13 024 8:09 AM CDT documented as of this encounter Care Teams Information Technology Project Manager Relationship Specialty Start Date End Date Ceasar Maynard MD [address] [place] [id number] PCP - General INTERNAL MEDICINE 07/02/22 documented as of this encounter
--- OUTSIDE RECORDS SUMMARY | 2024-10-14 11:31 | XMS_ITS | Encounter Summary ---
Author Organization [facility] Address [address] [place] [address]. [place], [place] [id number] [place] [address] Care Team Providers Care Screener Perfumer Name Role Phone Ceasar Maynard MD Primary Care Provider [phone] Encounter Details Date Type Department Care Team (Latest Contact Info) Description 07/05/2023 Travel Social History Tobacco Use Types Packs/Day [...] on filedocumented in this encounter Care Teams Screener Perfumer Relationship Specialty Start Date End Date Ceasar Maynard MD [address] [place] [id number] PCP - General INTERNAL MEDICINE 07/02/22 documented as of this encounter
--- OUTSIDE RECORDS SUMMARY | 2024-10-14 11:32 | XMS_ITS | Encounter Summary ---
Author Organization [facility] Address [address] [place] [address] Care Team Providers Care Floor Trader Name Role Phone Unavailable Primary Care Provider Unavailabl e Encounter Details Date Type Department Care Team (Late st Contact Info) Description 10/26/2023 External Device Data [facility] ABSTRACTION Provider, Abstract NO ADDRESS ON FILE Social History Tobacco Use Types Packs/Day Years Used Date Smoking Tobacco: Never Assessed Sex and Gender Information Value Date Recorded Sex Assigned at Not on file Gender Identity Not on file Sexual Orientation Not on file documented as of this encounter Plan of Treatment Not on file documented as of this encounter Visit Diagnoses Not on filedocumented in this encounter
--- OUTSIDE RECORDS SUMMARY | 2024-10-14 11:32 | XMS_ITS | Encounter Summary ---
Author Organization [facility] Address [address] [place] [address] Care Team Providers Care Process Description Writer Name Role Phone Unavailable Primary Care Provider Unavailabl e Reason for Visit * Reason Comments Medication Refill Encounter Details Date Type Department Care Team (Late st Contact Info) Description 10/20/2022 Refill [facility] [place] [address] [place] [phone] Marcie Pacheco MD [address] [phone] Social History Tobacco Use Types Packs/Day Years [...]
--- OUTSIDE RECORDS SUMMARY | 2024-10-14 11:32 | XMS_ITS | Encounter Summary ---
Author Organization [facility] Address [address] [place] [address] Care Team Providers Care Fisher Eel Spear Name Role Phone Unavailable Primary Care Provider Unavailabl e Encounter Details Date Type Department Care Team (Late st Contact Info) Description 01/25/2024 External Device Data STL ABSTRACTION Provider, Abstract [...]
--- OUTSIDE RECORDS SUMMARY | 2024-10-14 11:32 | XMS_ITS | Encounter Summary ---
Author Organization [facility] Address [address] [place] [address] Care Team Providers Care Energy Systems Engineer Name Role Phone Unavailable Primary Care Provider Unavailabl e Reason for Visit * Reason Comments Medication Refill Encounter Details Date Type Department Care Team (Late st Contact Info) Description 04/07/2022 Refill [facility] [place] [address] [place] [address] Marcie Pacheco MD [address] [phone] Social History Tobacco Use Types [...]
--- OUTSIDE RECORDS SUMMARY | 2024-10-14 11:32 | XMS_ITS | Clinical Summary ---
Author Organization [facility] Address [address] [place]: Epic Prelude ADT [place] [address] Care Team Providers Care Head Sampler Name Role Phone Unavailable Primary Care Provider Unavailabl e Medications Medication Sig Dispensed Refills Start Date End Date Status ergocalciferol (VITAMIN D2) 50,000 unit capsule TAKE 1 CAPSULE (50,000 UNITS) BY MOUTH EVERY 7 DAYS 12 Capsule 3 04/02/2023 Active norethindrone, Contraceptive, 0.35 mg Tablet Take 1 Tablet by mouth daily. 84 Tablet 04/02/2023 Active ergocalciferol (VITAMIN D2) 50,000 unit capsule Take 1 Capsule (50,000 Units) by mouth every 7 days. 12 Capsule 4 03/02/2023 Active letrozole (FEMARA) 2.5 mg tablet Take 1 tablet (2.5 mg) by mouth once daily for 5 days; start on day 3 and continue until day 7 of your menstrual cycle 5 Tablet 2 03/16/2024 Active medroxyPROGESTER one (PROVERA) 10 mg tablet Take 1 Tablet (10 mg) by mouth daily. 10 Tablet 3 03/16/2024 Active ergocalciferol (VITAMIN D2) 50,000 unit capsule Take 1 Capsule (50,000 Units) by mouth every 7 days. 10 Capsule 04/17/2024 Active acetaminophen (Mapap) 500 mg Capsule Take 2 Capsules (1,000 mg) by mouth every 6 hours as needed fpr pain. 20 Capsule 06/25/2024 Active vit-iron fumarate-fa () 28 mg iron- 800 mcg Tablet Take 1 Tablet by mouth daily. 30 Tablet 06/25/2024 Active letrozole (FEMARA) 2.5 mg tablet Take 1 Tablet (2.5 mg) by mouth daily for 5 days. BEGIN BETWEEN DAYS 3 AND 7 OF MENSTRUAL CYCLE 5 Tablet 08/17/2024 4 Discontinued Immunizations Name Administration Dates Next Due INFLUENZA VACCINE QUADRIVALENT 6 MOS UP PF IM Social History Tobacco Use Types Packs/Day Years Used Date Smoking Tobacco: Never Assessed Sex and Gender Information Value Date Recorded Sex Assigned at Not on file Gender Identity Not on file Sexual Orientation Not on file Plan of Treatment Health Maintenance Due Date Last Done Comments DTAP/TDAP/TD VACCINES (1 - Tdap) 2013 HEPATITIS B VACCINES (1 of 3 - 19+ 3-dose series) 2013 INFLUENZA VACCINE (#1) 2024 07/22/2022 CERVICAL CANCER SCREENING 2024 HPV VACCINES Aged Out No longer eligi ble based on patient's age to complete this topic PNEUMOCOCCAL VACCINE 0-64 YEARS Aged Out No longer eligible based on patient's age to complete this topic
== END 2024-10-07 09:25 | disposition home or self-care (01) ==
PROVIDERS: PCP Internal Medicine; Visit Provider Obstetrics & Gynecology
DX: E28.2 Polycystic ovarian syndrome (principal)
CPT/HCPCS: 36415; 84144

== ENCOUNTER 2024-10-13 10:37 | Outpatient (CLI) | payer OTHER, SELFPAY ==
[2024-10-14 06:23] LABS: Progesterone 15.7 ng/mL
== END 2024-10-13 10:38 | disposition home or self-care (01) ==
LOC: ANHLAB 10:39
PROVIDERS: PCP Internal Medicine; Visit Provider Obstetrics & Gynecology
DX: E28.2 Polycystic ovarian syndrome (principal)
CPT/HCPCS: 36415; 84144